=== PATIENT | female | born 1930 | race Caucasian/White ===

== ENCOUNTER 2016-07-30 12:17 | Outpatient (CLI) | payer MEDICARE, BC | END 2016-07-30 12:18 | disposition home or self-care (01) | DX: E11.9 Type 2 diabetes mellitus without complications (principal) ==

== ENCOUNTER 2017-02-28 15:33 | Emergency (ER) | payer MEDICARE, BC ==
[2017-02-28 15:44] VITALS: BP 165/74
--- NOTE | 2017-02-28 16:03 | ED Physician Documentation ---
PD HPI LOWER EXT INJURY - Stated complaint Stated Complaint: LT KNEE INJ - Chief complaint Chief Complaint: Ext Problem - History obtained from History obtained from: Patient - History of Present Illness PD HPI LOW EXT INJURY LOCATION: Left, Upper leg, Knee, Foot Type of injury: Fall, Twist (she twisted left ankle/foot and fell, landing to left knee. Pain on knee and distal femur area. Has had prior femur fracture repaired and was concerned about damage to repair.) Timing - onset: Today Timing - details: Abrupt onset Worsened by: Moving, Palpating, Other (standing) Associated symptoms: No: Weakness, Numbness, Swelling Contributing factors: Prior ortho surgery (femur fracture with repair.) Recently seen: Not recently seen Review of Systems Musculoskeletal: reports: Neck pain, Back pain, Other (left foot and ankle with mild tenderness dorsolaterally. Good ROM and not having point bony tenderness. Left knee with tenderness anteriorly. No bruising. Limited exam of knee due to injury. No noted effusion, no deformity. ROM is okay though hurts.) Neurologic: denies: Focal weakness, Numbness, Confused, Altered mental status, Headache, Head injury PD PAST MEDICAL HISTORY - Past Medical History Cardiovascular: Hypertension, Angina Respiratory: None Neuro: None Endocrine/Autoimmune: Type 2 diabetes GI: None : None HEENT: Other Psych: None Musculoskeletal: Other Derm: Other - Past Surgical History Past Surgical History: Yes Ortho: Spine surgery HEENT: Detached retina repair - Present Medications Home Medications: Ambulatory Orders Medication Instructions Recorded Confirmed Atorvastatin Calcium [Lipitor] 20 mg PO DAILY 07/24/13 05/12/14 Metformin HCl [Fortamet] 1,000 mg PO BID 07/24/13 05/12/14 Sennosides [Senna] 8.6 mg PO DAILY 07/24/13 05/12/14 Metoprolol Succinate [Toprol Xl] 25 mg PO BID 05/07/14 05/12/14 Rivaroxaban [Xarelto] 20 mg PO DAILY 05/07/14 05/12/14 - Allergies Allergies/Adverse Reactions: Allergies Allergy/AdvReac Type Severity Reaction Status Date / Time Sulfa (Sulfonamide Allergy Unknown Unknown Verified 02/28/17 15:44 Antibiotics) - Social History Does the pt smoke?: No Smoking Status: Never smoker Does the pt drink ETOH?: No Does the pt have substance abuse?: No - Immunizations Immunizations are current?: Yes Immunizations: TDAP >10years/unknown - POLST Patient has POLST: Yes PD ED PE NORMAL - Vitals Vital signs reviewed: Yes - General General: Alert and oriented X 3, No acute distress, Well developed/nourished - HEENT HEENT: Atraumatic - Neck Neck: Supple, no meningeal sign, No adenopathy - Cardiac Cardiac: RRR, No murmur - Respiratory Respiratory: Clear bilaterally - Abdomen Abdomen: Soft, Non tender - Back Back: No CVA TTP, No spinal TTP - Derm Derm: Normal color, Warm and dry - Extremities Extremities: Other (left foot and ankle with tenderness but no bony point tenderness anterolateral proximal foot. Good ROM. The knee has some tenderness anteriorly. No gross deformity. Limited ROM due to pain, but tai flex and extend. ) - Neuro Neuro: Alert and oriented X 3, No motor deficit, Normal speech Results - Vitals Vitals: Oxygen O2 Source Room air - Rads (name of study) knee/femur Radiology: Prelim report reviewed (prior surgical hardware and healed fracture. No new fractures seen. Tricompartment arthritis. ) PD MEDICAL DECISION MAKING - ED course Complexity details: reviewed results (no new fractures nor apparent dislodgement of prior hardware. ), considered differential, d/w patient Departure - Departure Disposition: 01 Home, Self Care Clinical Impression: Accidental fall Qualifiers: Encounter type: initial encounter Qualified Code(s): W19.XXXA - Unspecified fall, initial encounter Knee contusion Qualifiers: Encounter type: initial encounter Laterality: left Qualified Code(s): S80.02XA - Contusion of left knee, initial encounter Foot sprain Qualifiers: Encounter type: initial encounter Laterality: left Qualified Code(s): S93.602A - Unspecified sprain of left foot, initial encounter Condition: Stable Record reviewed to determine appropriate education?: Yes Instructions: ED Contusion Lower Ext, ED Hematoma Comments: Claude wrap ice and elevate for the knee swelling. It will hurt well for several days and then the swelling sugar down and improve weightbearing. The bruising color will take a while to clear up. The hematoma there may take 2-3 weeks to fully improve. Recheck if it has not improved a lot over the next 5-6 days. Tylenol or ibuprofen if needed for pains. Walker or whatever is needed for comfort at home. Discharge Date/Time: 02/28/17 17:34
--- NOTE | 2017-02-28 16:50 | XRAY Preliminary Report ---
Exam: XR FEMUR 2V LT IMPRESSION: Left femur intramedullary michael with proximal and distal interlocking screws appears unchan ged. No evidence for acute fracture. [facility] SITE ID: [id number]
--- NOTE | 2017-02-28 16:52 | XRAY Report ---
EXAM: LEFT FEMUR RADIOGRAPHY EXAM DATE: 02/28/2017 04:33 PM. CLINICAL HISTORY: Fell with knee pain. COMPARISON: 03/14/2015. TECHNIQUE: 2 views. FINDINGS: Left femur intramedullary michael with proximal and distal interlocking screws appears unchange d. No evidence for loosening. No evidence for acute fracture. Bones are demineralized. Mild to moderate left hip degenerative joint disease. See the separate knee x-ray report. No dislocat ion. Femoral artery calcification. IMPRESSION: Left femur intramedullary michael with proximal and distal interlocking screws appears unchan ged. No evidence for acute fracture. [facility] Referring Provider Line: [phone] SITE ID: [id number]
--- NOTE | 2017-02-28 16:53 | XRAY Preliminary Report ---
Exam: XR KNEE 3 VIEW LT IMPRESSION: 1. No evidence for acute fracture. 2. Moderate anterior knee soft tissue swelling. 3. Tricompartment knee degenerative joint disease. Small knee joint effusion. [facility] SITE ID: [id number]
--- NOTE | 2017-02-28 16:55 | XRAY Report ---
EXAM: LEFT KNEE RADIOGRAPHY EXAM DATE: 02/28/2017 04:33 PM. CLINICAL HISTORY: Fall-bruising. COMPARISON: 03/14/2015 left knee. TECHNIQUE: 3 views. FINDINGS: Moderate anterior knee soft tissue swelling. Distal femur intramedullary michael and screws. No evidence for loosening. No dislocation. Femorotibial chondrocalcinosis. Moderate medial compartment femoral tibial degenerati ve joint disease with joint space narrowing and sclerosis. Mild lateral compartment osteophytes. Mild patellofemoral degenerative joint disease. Small knee joint effusion. Bones are demineralized. No evidence for acute fracture. IMPRESSION: 1. No evidence for acute fracture. 2. Moderate anterior knee soft tissue swelling. 3. Tricompartment knee degenerative joint disease. Small knee joint effusion. [facility] Referring Provider Line: [phone] SITE ID: [id number]
== END 2017-02-28 17:34 | disposition home or self-care (01) ==
LOC: ED 15:33
DX: S80.02XA Contusion of left knee, initial encounter (principal); S93.602A Unspecified sprain of left foot, initial encounter; W01.0XXA Fall on same level from slipping, tripping and stumbling without subsequent striking against object, initial encounter; I10 Essential (primary) hypertension; I20.9 Angina pectoris, unspecified; Z79.01 Long term (current) use of anticoagulants; E11.9 Type 2 diabetes mellitus without complications
CPT/HCPCS: 99283

== ENCOUNTER 2017-09-16 08:00 | Outpatient (CLI) | payer MEDICARE, BC ==
[2017-09-16 13:54] LABS: HB2 TOTAL 14.1 g/dL; HEMOGLOBIN A1C 0.78 g/dL; HEMOGLOBIN A1C % 7.2 % (4.6-6.2)
[2017-09-16 14:00] LABS: ALBUMIN 3.9 g/dL (3.2-5.5); ALBUMIN/GLOBULIN RATIO 1.3 (1.0-2.2); ALKALINE PHOSPHATASE 40 IU/L (42-121); ALT ALANINE AMINOTRANSFERASE 16 IU/L (10-60); AST ASPARTATE AMINOTRANSFERASE 26 IU/L (10-42); BILIRUBIN,TOTAL 0.4 mg/dL (0.2-1.0); BUN - BLOOD UREA NITROGEN 7 mg/dL (6-20); CALCIUM 9.2 mg/dL (8.5-10.3); CARBON DIOXIDE - CO2 24 mmol/L (21-32); CHLORIDE 104 mmol/L (101-111); CHOL/HDL RATIO 3.2 (<4.4); CHOLESTEROL 90 mg/dL; CREATININE 0.6 mg/dL (0.4-1.0); GFR - MDRD 95 (>89); GLUCOSE 134 mg/dL (70-100); HDL CHOLESTEROL 28 mg/dL; LDL CHOLESTEROL,CALCULATED 45 mg/dL; LDL/HDL RATIO 1.6 (<4.4); SODIUM 136 mmol/L (135-145); TOTAL PROTEIN 6.9 g/dL (6.7-8.2); VLDL CHOLESTEROL 17 mg/dL
[2017-09-16 14:13] LABS: BASOPHILS # (AUTO) 0.1 10^3/uL (0.0-0.1); BASOPHILS % (AUTO) 1.3 %; EOSINOPHILS # (AUTO) 0.2 10^3/uL (0.0-0.7); EOSINOPHILS % (AUTO) 4.6 %; HGB - HEMOGLOBIN 12.9 g/dL (12.0-16.0); LYMPHOCYTES # (AUTO) 1.6 10^3/uL (1.5-3.5); LYMPHOCYTES % (AUTO) 29.1 %; MEAN CORPUSCULAR HEMOGLOBIN 29.2 pg (27.0-31.0); MEAN CORPUSCULAR HGB CONC 32.9 g/dL (32.0-36.0); MEAN CORPUSCULAR VOLUME 88.9 fL (81.0-99.0); MEAN PLATELET VOLUME 9.7 fL (7.9-10.8); MONOCYTES # (AUTO) 0.5 10^3/uL (0.0-1.0); MONOCYTES % (AUTO) 9.4 %; NEUTROPHILS % (AUTO) 55.6 %; PLT - PLATELET COUNT 246 10^3/uL (130-450); RED CELL DISTRIBUTION WIDTH 15.6 % (12.0-15.0); WHITE BLOOD COUNT 5.3 x10^3/uL (4.8-10.8)
[2017-09-16 15:10] LABS: PLATELET ESTIMATE, MANUAL NORMAL (130-450,000) (NORMAL); PLATELET MORPHOLOGY 2+ LARGE PLATELETS (NORMAL); RBC MORPHOLOGY (MULTIPLE) NORMAL APPEARANCE (NORMAL)
== END 2017-09-16 08:01 | disposition home or self-care (01) ==
LOC: LAB.WCP 08:00
PROVIDERS: ATTEND Family Medicine
DX: I48.91 Unspecified atrial fibrillation (principal); E11.9 Type 2 diabetes mellitus without complications; E78.5 Hyperlipidemia, unspecified
CPT/HCPCS: 36415; 80053; 80061; 83036; 83721; 84443; 85025

== ENCOUNTER 2018-01-06 10:00 | Outpatient (CLI) | payer MEDICARE, BC | END 2018-01-06 10:01 | LOC: LAB.WCP 10:00 | PROVIDERS: ATTEND Physician Assistant Medical | DX: F02.80 Dementia in other diseases classified elsewhere, unspecified severity, without behavioral disturbance, psychotic disturbance, mood disturbance, and anxiety (principal); G30.9 Alzheimer's disease, unspecified | CPT/HCPCS: 36415; 82607 ==

== ENCOUNTER 2018-03-16 15:05 | Outpatient (CLI) | payer MEDICARE, BC ==
--- NOTE | 2018-03-17 13:11 | MRI Report ---
Reason: TRIGGER FINGER OF RIGHT MIDDLE FINGER Procedure Date: 03/16/2018 Accession Number: [id number] / [id number] Procedure: MRI - Hand RT W/O CPT Code: FULL RESULT: EXAM: RIGHT HAND MRI WITHOUT CONTRAST EXAM DATE: 03/16/2018 04:07 PM. CLINICAL HISTORY: Trigger finger of right middle finger. COMPARISON: FINGER(S) RT 02/17/2018 11:43 AM. TECHNIQUE: Multiplanar, multisequence T1-weighted and fluid-sensitive sequences of the hand without contrast. Other: None. FINDINGS: Bones and Articular Surfaces: There is some joint space narrowing as well as small marginal osteophyte formation throughout the visualized interphalangeal joints, most pronounced at the third digit. No appreciable erosive change. No significant joint effusion. Cartilage loss at the base of the third proximal phalanx. Slight volar subluxation of the proximal phalanx at the second MCP joint. Musculotendinous Structures: Moderate focal area of fluid surrounding the flexor digitorum brevis tendons at the level of the distal aspect of the third metacarpal. Visualized flexor and extensor tendons otherwise appear intact. No significant muscle atrophy or fatty replacement. IMPRESSION: 1. Mild osteoarthritis throughout the interphalangeal joints as well as the third MCP joint. 2. Third flexor digitorum tenosynovitis. [facility] MUSCULOSKELETAL RADIOLOGY SECTION
== END 2018-03-16 15:06 | disposition home or self-care (01) ==
LOC: DI 15:05
PROVIDERS: ATTEND Orthopaedic Surgery Sports Medicine
DX: M65.331 Trigger finger, right middle finger (principal); M19.041 Primary osteoarthritis, right hand; M65.841 Other synovitis and tenosynovitis, right hand

== ENCOUNTER 2018-03-25 09:10 | Outpatient (CLI) | payer MEDICARE, BC ==
[2018-03-25 13:47] LABS: HB2 TOTAL 13.7 g/dL; HEMOGLOBIN A1C 0.76 g/dL; HEMOGLOBIN A1C % 7.2 % (4.6-6.2)
[2018-03-25 13:49] LABS: ALBUMIN 4.2 g/dL (3.2-5.5); ALBUMIN/GLOBULIN RATIO 1.4 (1.0-2.2); ALKALINE PHOSPHATASE 46 IU/L (42-121); ALT ALANINE AMINOTRANSFERASE 19 IU/L (10-60); AST ASPARTATE AMINOTRANSFERASE 27 IU/L (10-42); BILIRUBIN,TOTAL 0.8 mg/dL (0.2-1.0); BUN - BLOOD UREA NITROGEN 12 mg/dL (6-20); CALCIUM 9.4 mg/dL (8.5-10.3); CARBON DIOXIDE - CO2 25 mmol/L (21-32); CHLORIDE 100 mmol/L (101-111); CHOL/HDL RATIO 2.7 (<4.4); CHOLESTEROL 85 mg/dL; CREATININE 0.6 mg/dL (0.4-1.0); GFR - MDRD 95 (>89); GLUCOSE 143 mg/dL (70-100); HDL CHOLESTEROL 32 mg/dL; LDL CHOLESTEROL,CALCULATED 34 mg/dL; LDL/HDL RATIO 1.1 (<4.4); SODIUM 135 mmol/L (135-145); TOTAL PROTEIN 7.1 g/dL (6.7-8.2); VLDL CHOLESTEROL 19 mg/dL
== END 2018-03-25 09:11 | disposition home or self-care (01) ==
LOC: LAB.WCP 09:10
PROVIDERS: ATTEND Physician Assistant Medical
DX: E11.9 Type 2 diabetes mellitus without complications (principal); E53.8 Deficiency of other specified B group vitamins
CPT/HCPCS: 36415; 80053; 80061; 82607; 83036; 83721

== ENCOUNTER 2018-05-29 10:18 | Outpatient (CLI) | payer MEDICARE, BC ==
[2018-05-29 10:45] LABS: BASOPHILS # (AUTO) 0.1 10^3/uL (0.0-0.1); BASOPHILS % (AUTO) 1.1 %; EOSINOPHILS # (AUTO) 0.2 10^3/uL (0.0-0.7); EOSINOPHILS % (AUTO) 3.8 %; HGB - HEMOGLOBIN 13.7 g/dL (12.0-16.0); LYMPHOCYTES # (AUTO) 1.7 10^3/uL (1.5-3.5); LYMPHOCYTES % (AUTO) 27.2 %; MEAN CORPUSCULAR HEMOGLOBIN 30.1 pg (27.0-31.0); MEAN CORPUSCULAR HGB CONC 33.4 g/dL (32.0-36.0); MEAN CORPUSCULAR VOLUME 89.9 fL (81.0-99.0); MEAN PLATELET VOLUME 9.2 fL (7.9-10.8); MONOCYTES # (AUTO) 0.6 10^3/uL (0.0-1.0); MONOCYTES % (AUTO) 8.8 %; NEUTROPHILS # (AUTO) 3.8 10^3/uL (1.5-6.6); NEUTROPHILS % (AUTO) 59.1 %; PLT - PLATELET COUNT 266 10^3/uL (130-450); RED BLOOD COUNT 4.55 10^6/uL (4.20-5.40); RED CELL DISTRIBUTION WIDTH 15.2 % (12.0-15.0); WHITE BLOOD COUNT 6.4 x10^3/uL (4.8-10.8)
[2018-05-29 10:53] LABS: CALCIUM 9.4 mg/dL (8.5-10.3); CREATININE 0.6 mg/dL (0.4-1.0)
[2018-05-29 11:19] LABS: PLATELET MORPHOLOGY RARE GIANT PLATELETS (NORMAL)
== END 2018-05-29 10:19 | disposition home or self-care (01) ==
LOC: LAB 10:18
PROVIDERS: ATTEND Orthopaedic Surgery Sports Medicine
DX: M65.331 Trigger finger, right middle finger (principal); E53.8 Deficiency of other specified B group vitamins; I48.0 Paroxysmal atrial fibrillation
CPT/HCPCS: 36415; 80048; 85025; 93005

== ENCOUNTER 2018-06-03 07:32 | Day surgery (SDC) | payer MEDICARE, BC ==
[2018-06-03] MEDS ORDERED: LACTATED RINGERS 1,000 ML IV ONE ×2 (07:41)
[2018-06-03] MEDS ORDERED: ceFAZolin 2 GM/50 ML 2 GM/50 ML BAG IV ONE ×2 (08:06→09:38)
--- NOTE | 2018-06-03 08:10 | ANESTHESIA ---
Pre-Anesthesia VS, & Labs - Diagnosis right third trigger finger - Procedure rigt third trigger finger release Height 5 ft 2 in Body Mass Index 39.3 Home Medications and Allergies Home Medications: Ambulatory Orders Aspirin [Adult Aspirin] 81 mg PO DAILY 05/27/18 Cyanocobalamin (Vitamin B-12) [Vitamin B-12] 1,000 mcg PO BID 05/27/18 Atorvastatin Calcium [Lipitor] 20 mg PO DAILY 07/24/13 Metformin HCl [Fortamet] 1,000 mg PO BID 07/24/13 Metoprolol Succinate [Toprol Xl] 25 mg PO DAILY 05/07/14 Rivaroxaban [Xarelto] 20 mg PO DAILY 05/07/14 Aspirin [Adult Aspirin] 81 mg PO DAILY 05/27/18 Cyanocobalamin (Vitamin B-12) [Vitamin B-12] 1,000 mcg PO BID 05/27/18 Allergies/Adverse Reactions: Allergies Allergy/AdvReac Type Severity Reaction Status Date / Time Sulfa (Sulfonamide Allergy Unknown Unknown Verified 06/03/18 07:57 Antibiotics) Anes History & Medical History - Medical History Cardiovascular: reports: High cholesterol, Angina Pulmonary: reports: Sleep apnea Gastrointestinal: reports: Colon polyps Urinary: reports: None Musculoskeletal: reports: Osteoarthritis, Other Endocrine/Autoimmune: reports: Type 2 diabetes Blood Disorders: reports: None Skin: reports: Other Smoking Status: Never smoker - Surgical History General: Colonoscopy Eyes Ears Nose Throat (EENT): Detached retina repair Orthopedic: Spine surgery
[2018-06-03] MEDS ORDERED: BUPIVACAINE 0.25% PF 30 ML VIAL ONE (08:14)
--- NOTE | 2018-06-03 08:19 | ANESTHESIA ---
Pre-Anesthesia VS, & Labs - Diagnosis right third finger trigger - Procedure right third finger trigger release Vital Signs: Temp Pulse Resp BP Pulse Ox 36.6 C 68 17 191/77 H 95 06/03/18 07:42 06/03/18 07:42 06/03/18 07:42 06/03/18 07:42 06/03/18 07:42 Height 5 ft 4 in Body Mass Index 39.3 - NPO >8 hours - Is Patient ?: Not Applicable - Lab Results Current Lab Results: Laboratory Tests 06/03/18 07:57: POC Whole Bld Glucose 149 H Home Medications and Allergies Home Medications: Ambulatory Orders Aspirin [Adult Aspirin] 81 mg PO DAILY 05/27/18 Cyanocobalamin (Vitamin B-12) [Vitamin B-12] 1,000 mcg PO BID 05/27/18 Atorvastatin Calcium [Lipitor] 20 mg PO DAILY 07/24/13 Metformin HCl [Fortamet] 1,000 mg PO BID 07/24/13 Metoprolol Succinate [Toprol Xl] 25 mg PO DAILY 05/07/14 Rivaroxaban [Xarelto] 20 mg PO DAILY 05/07/14 Aspirin [Adult Aspirin] 81 mg PO DAILY 05/27/18 Cyanocobalamin (Vitamin B-12) [Vitamin B-12] 1,000 mcg PO BID 05/27/18 Allergies/Adverse Reactions: Allergies Allergy/AdvReac Type Severity Reaction Status Date / Time Sulfa (Sulfonamide Allergy Unknown Unknown Verified 06/03/18 07:57 Antibiotics) Anes History & Medical History - Anesthetic History Anesthesia Complications: reports: No previous complications - Medical History Cardiovascular: reports: High cholesterol, Angina Pulmonary: reports: Sleep apnea Gastrointestinal: reports: Colon polyps Urinary: reports: None Neuro: reports: TIA (memory issues) Musculoskeletal: reports: Osteoarthritis, Other Endocrine/Autoimmune: reports: Type 2 diabetes Blood Disorders: reports: None Skin: reports: Other Smoking Status: Never smoker - Surgical History General: Colonoscopy Eyes Ears Nose Throat (EENT): Detached retina repair Orthopedic: Spine surgery Exam General: Alert Neck Mobility: Normal Mallampati classification: II Respiratory: Lungs clear Cardiovascular: Regular rate, Normal S1, Normal S2 Mental/Cognitive Status: Alert/Oriented X3 Plan Anesthesia Type: General Consent for Procedure(s) Verified and Reviewed: Yes Code Status: Attempt Resuscitation ASA classification: 3-Severe systemic disease Is this case an emergency?: No
[2018-06-03] MEDS ORDERED: BUPIVACAINE 0.25% PF 30 ML VIAL SUBQ ONE ×2 (09:05)
[2018-06-03] MEDS ORDERED: LIDOCAINE-MPF 2% 5 ML VIAL IM ONE (09:38)
[2018-06-03] MEDS ORDERED: fentaNYL 100 MCG/2 ML VIAL IVP ONE (09:38)
[2018-06-03] MEDS ORDERED: ePHEDrine 50 MG/ML VIAL IVP ONE (09:38)
[2018-06-03] MEDS ORDERED: PROPOFOL 200 MG/20 ML VIAL IVP ONE (09:38)
[2018-06-03] MEDS ORDERED: ONDANSETRON 4 MG/2 ML VIAL IVP PRN (10:20)
[2018-06-03] MEDS ORDERED: HYDROcod/ACETAM 5/325 MG TABLET PO PRN (10:20)
--- NOTE | 2018-06-03 10:37 | IMMEDIATE POSTOPERATIVE NOTE ---
Immediate Postoperative Note - Procedure Note Procedure Date: 06/03/18 Pre-Op Diagnosis: RIGHT 3RD TRIGGER FINGER Procedure: RIGHT 3RD TRIGGER RELEASE Post-Op Diagnosis: SAME Primary Surgeon: Jh COY MD Poured Pipe Maker: SENTHIL Anesthesia Type: General LMA, Local Findings: ABOVE Complications: No complications Estimated Blood Loss (in cc): 5 Specimens and Cultures: NA Plan of Care: Patient tolerated procedure well. Instrument and sponge counts correct. Pt transferred to in stable condition. Follow standard post-op trigger finger protocol discussed with daughter post-op
[2018-06-03 11:09] VITALS: BP 139/49
--- NOTE | 2018-06-03 18:35 | OPERATIVE REPORT ---
DATE OF SERVICE: 06/03/2018 Physician: John Goodman MD SURGEON: John Goodman MD CHAMFERING MACHINE OPERATOR: None. ANESTHESIOLOGIST: Felice Pastor MD ANESTHESIA: General anesthesia as well as 10 mL of 0.25% plain Marcaine. ESTIMATED BLOOD LOSS: Less than 5 mL. FLUIDS: 700 mL lactated Ringer's. COMPRESSION DEVICE: Bilateral calf SCD boots. PREOPERATIVE ANTIBIOTICS: Weight-based IV Ancef. TOURNIQUET TIME: 23 minutes at 250 mmHg. PREOPERATIVE DIAGNOSIS: Right third digit stenosing tenosynovitis/trigger finger. POSTOPERATIVE DIAGNOSIS: Right third digit stenosing tenosynovitis/trigger finger. PROCEDURE: Right third digit trigger finger release. INTRAOPERATIVE COMPLICATIONS: None noted. INTRAOPERATIVE FINDINGS: Locked trigger finger is released with smooth range of motion post A1 pulle y release. There is a prominence in the flexor tendon consistent with trigger finger. HISTORY OF PRESENT ILLNESS AND INDICATIONS: The patient is an 87-year-old female who failed nonopera tive treatment for right 3rd trigger finger. This was a locked trigger finger. She was indicated fo r operative treatment. Please see operative discussion in the clinic where risks, benefits, alternat omer of operative and nonoperative treatment were reviewed. The patient and the patient's daughter v erbalized understanding of the above and verbalized her wish to proceed with operative treatment. In formed consent was given. PROCEDURE: On 06/03/2018 the patient was identified in the preoperative care unit. She identifies t he right third digit as the operative site. This area is signed. The patient received preoperative weight-based IV antibioticsV. She was brought to the operating room, where general anesthesia was ad ministered. Head, neck, and extremities placed in anatomically comfortable and safe positions to leighann id peripheral nerve stretch or compression. The patient's right upper extremity had a well-padded to urniquet placed high on the right arm, taking care to avoid any encumbrance of the axilla. The patie nt's right upper extremity was then scrubbed, the fingernail bengali was removed, and then the right h and and wrist and forearm were prepped and draped in the usual sterile fashion. At this time, surgical pause identifies the right third digit as the operative site. At this point, the distal palmar crease identified at the area just distal to the MCP joint. A longitudinal incisio n was made over the A1 jennifer after being marked out. This was approximated going from 2 cm proximal to the proximal digital crease to 1 cm from the proximal digital crease of the third ray. After erick rniquet is inflated after Esmarch bandage was used to exsanguinate the limb after timeout and surgica l pause, the aforementioned incision is made through skin only. Spreading dissection is carried out to the A1 jennifer. The neurovascular bundle is protected on the radial and ulnar sides. The proximal and distal aspects of the A1 jennifer are identified. The locked digit is appreciated and once fully identified and defined, the A1 jennifer is initially incised sharply and then with tenotomy scissors pr oximally and distally to the proximal and distal ends. Care was taken to avoid injury to adjacent ne urovascular structures, which were protected as well as to avoid any more distal dissection that may affect the adjacent A2 jennifer. After this appropriately released the finger, and though the nodule can still be palpated, the finger moves freely with no catching or triggering whatsoever. There is no bowstringing. At this point, the wound is copiously irrigated and then closed using interrupted 4-0 nylon suture wi th mattress-style sutures to tyra the skin edges. Skin is washed and dried, local anesthetic was in fused in the area around the incision, and then the incision is covered with Xeroform dressing, 4 x 4 , and then ultimately with Ghazala and Claude wrap after soft roll. The patient tolerated the procedure well. Instrument and sponge counts were correct. The patient tr ansferred to recovery room in stable condition. She will follow standard postoperative right 3rd tri gger finger protocol. The patient's daughter was contacted in the waiting room. The case was discussed. The patient will be encouraged to gently flex and extend the digit with active assistance. She will flex and extend a djacent digits to avoid exertion. She will keep the dressing clean, dry, and intact. We will see he r back in 10-14 days to take the stitches out, though sooner should problems, questions, or worsening of the patient's condition should arise. She was also given a prescription for Tylenol No. 3 per e patient's daughter's request, though they will use this as a backup to Tylenol if that does not wor k. They will notify us prior to the followup visit for problems or questions. Of note, it was noted that the patient did have a small skin tear approximately 1 cm on the mid forea rm adjacent to a previously noted ecchymotic area. This is noted immediately after the dressings wer e taken down and Dermabond was used to close this skin tear. The patient's daughter was advised of t his and advised on appropriate care. TD: 06/03/2018 11:15
== END 2018-06-03 07:33 | disposition home or self-care (01) ==
LOC: SDS 07:32
PROVIDERS: ATTEND Orthopaedic Surgery Sports Medicine
PROC: 0LN70ZZ Release Right Hand Tendon, Open Approach (ICD-10-PCS; principal; 2018-06-03 08:30)
DX: M65.331 Trigger finger, right middle finger (principal); G47.30 Sleep apnea, unspecified; E11.9 Type 2 diabetes mellitus without complications; I48.91 Unspecified atrial fibrillation; Z86.73 Personal history of transient ischemic attack (TIA), and cerebral infarction without residual deficits
CPT/HCPCS: 26055; J0690; J7120

== ENCOUNTER 2018-09-24 14:28 | Outpatient (CLI) | payer MEDICARE, BC ==
[2018-09-24 19:08] LABS: BASOPHILS % (AUTO) 0.7 %; EOSINOPHILS # (AUTO) 0.1 10^3/uL (0.0-0.7); EOSINOPHILS % (AUTO) 1.9 %; LYMPHOCYTES # (AUTO) 1.7 10^3/uL (1.5-3.5); LYMPHOCYTES % (AUTO) 25.3 %; MEAN CORPUSCULAR HEMOGLOBIN 29.2 pg (27.0-31.0); MEAN CORPUSCULAR HGB CONC 32.2 g/dL (32.0-36.0); MEAN CORPUSCULAR VOLUME 90.7 fL (81.0-99.0); MONOCYTES # (AUTO) 0.7 10^3/uL (0.0-1.0); NEUTROPHILS # (AUTO) 4.2 10^3/uL (1.5-6.6); NEUTROPHILS % (AUTO) 62.1 %; PLT - PLATELET COUNT 260 10^3/uL (130-450); RED BLOOD COUNT 4.44 10^6/uL (4.20-5.40); RED CELL DISTRIBUTION WIDTH 15.1 % (12.0-15.0); WHITE BLOOD COUNT 6.7 x10^3/uL (4.8-10.8)
[2018-09-24 19:10] LABS: ALBUMIN 3.7 g/dL (3.2-5.5); ALBUMIN/GLOBULIN RATIO 1.1 (1.0-2.2); ALKALINE PHOSPHATASE 46 IU/L (42-121); ALT ALANINE AMINOTRANSFERASE 19 IU/L (10-60); AST ASPARTATE AMINOTRANSFERASE 31 IU/L (10-42); BILIRUBIN,TOTAL 0.7 mg/dL (0.2-1.0); BUN - BLOOD UREA NITROGEN 12 mg/dL (6-20); CALCIUM 9.4 mg/dL (8.5-10.3); CARBON DIOXIDE - CO2 23 mmol/L (21-32); CHLORIDE 103 mmol/L (101-111); CHOL/HDL RATIO 3.4 (<4.4); CHOLESTEROL 100 mg/dL; CREATININE 0.7 mg/dL (0.4-1.0); GFR - MDRD 80 (>89); GLUCOSE 161 mg/dL (70-100); HB2 TOTAL 13.5 g/dL; HDL CHOLESTEROL 29 mg/dL; HEMOGLOBIN A1C 0.71 g/dL; LDL CHOLESTEROL,CALCULATED 52 mg/dL; LDL/HDL RATIO 1.8 (<4.4); SODIUM 138 mmol/L (135-145); VLDL CHOLESTEROL 19 mg/dL
== END 2018-09-24 14:29 | disposition home or self-care (01) ==
LOC: LAB.WCP 14:28
PROVIDERS: ATTEND Family Medicine
DX: E11.9 Type 2 diabetes mellitus without complications (principal); E53.8 Deficiency of other specified B group vitamins
CPT/HCPCS: 36415; 80053; 80061; 82607; 83036; 83721; 85025

== ENCOUNTER 2019-04-21 08:00 | Outpatient (CLI) | payer MEDICARE, BC ==
[2019-04-21 13:19] LABS: CALCIUM 9.4 mg/dL (8.5-10.3); CREATININE 0.7 mg/dL (0.4-1.0)
[2019-04-21 14:20] LABS: HB2 TOTAL 13.1 g/dL; HEMOGLOBIN A1C 0.66 g/dL; HEMOGLOBIN A1C % 6.8 % (4.6-6.2)
== END 2019-04-21 23:59 | disposition home or self-care (01) ==
LOC: LAB.WCP 08:00
PROVIDERS: ATTEND Physician Assistant Medical
DX: E11.9 Type 2 diabetes mellitus without complications (principal)
CPT/HCPCS: 36415; 80048; 83036

== ENCOUNTER 2019-04-23 09:03 | Outpatient (CLI) | payer MEDICARE, BC | END 2019-04-23 09:04 | disposition critical access hospital (66) | LOC: EMS 09:03 | PROVIDERS: ATTEND Surgery | DX: R11.2 Nausea with vomiting, unspecified (principal) | CPT/HCPCS: A0425; A0427 ==

== ENCOUNTER 2019-04-23 09:18 | Inpatient (IN) | payer MEDICARE, BC ==
[2019-04-23 09:42] LABS: BASOPHILS % (AUTO) 0.3 %; EOSINOPHILS # (AUTO) 0.1 10^3/uL (0.0-0.7); EOSINOPHILS % (AUTO) 0.8 %; HGB - HEMOGLOBIN 14.4 g/dL (12.0-16.0); LYMPHOCYTES # (AUTO) 0.5 10^3/uL (1.5-3.5); LYMPHOCYTES % (AUTO) 7.9 %; MEAN CORPUSCULAR HEMOGLOBIN 29.5 pg (27.0-31.0); MEAN CORPUSCULAR HGB CONC 32.4 g/dL (32.0-36.0); MEAN CORPUSCULAR VOLUME 91.2 fL (81.0-99.0); MEAN PLATELET VOLUME 10.8 fL (7.9-10.8); MONOCYTES % (AUTO) 0.6 %; NEUTROPHILS # (AUTO) 5.9 10^3/uL (1.5-6.6); NEUTROPHILS % (AUTO) 90.2 %; PLT - PLATELET COUNT 262 10^3/uL (130-450); RED BLOOD COUNT 4.88 10^6/uL (4.20-5.40); WHITE BLOOD COUNT 6.6 x10^3/uL (4.8-10.8)
[2019-04-23 09:56] LABS: ALBUMIN 4.1 g/dL (3.2-5.5); ALBUMIN/GLOBULIN RATIO 1.1 (1.0-2.2); BILIRUBIN,TOTAL 1.2 mg/dL (0.2-1.0); CALCIUM 9.4 mg/dL (8.5-10.3); CREATININE 0.7 mg/dL (0.4-1.0); TOTAL PROTEIN 7.8 g/dL (6.7-8.2)
[2019-04-23 09:58] LABS: INR 2.5 (0.8-1.2); PT - PROTHROMBIN TIME 26.9 secs (9.9-12.6)
[2019-04-23 10:05] LABS: PARTIAL THROMBOPLASTIN TIME 33.1 secs (24.9-33.3)
--- NOTE | 2019-04-23 10:15 | XRAY Report ---
Reason: cough Procedure Date: 04/23/2019 Accession Number: [id number] / [id number] Procedure: XR - Chest 1 View X-Ray CPT Code: 22408 Final Report FULL RESULT: EXAM: CHEST RADIOGRAPHY EXAM DATE: 04/23/2019 09:45 AM. CLINICAL HISTORY: Cough. COMPARISON: 03/29/2014 8:29 PM. TECHNIQUE: 1 view. FINDINGS: Lungs/Pleura: Central bronchial wall thickening noted. Mild increase in left greater than right basilar opacities. No focal upper lung opacity seen. No pleural effusion or pneumothorax. Mediastinum: Stable heart size and mediastinum. Atherosclerotic plaque of the aortic arch noted. Other: None. IMPRESSION: 1. Central bronchial wall thickening could reflect underlying reactive airways and bronchitis. 2. Left ear than right basilar opacities could reflect superimposed pneumonia. [facility]
[2019-04-23 10:26] LABS: BILIRUBIN,URINE NEGATIVE (NEGATIVE); GLUCOSE, URINE (UA) NEGATIVE (NEGATIVE); KETONES,URINE (UA) 15 mg/dL (NEGATIVE); LEUKOCYTE ESTERASE, URINE NEGATIVE (NEGATIVE); NITRITE,URINE NEGATIVE (NEGATIVE); OCCULT BLOOD,URINE TRACE-INTA (NEGATIVE); PROTEIN,URINE NEGATIVE (NEGATIVE); UROBILINOGEN,URINE 0.2 (NORMAL) E.U./dL (NORMAL)
[2019-04-23 10:29] LABS: CLARITY,URINE CLEAR (CLEAR)
[2019-04-23] MEDS ORDERED: SODIUM CHLORIDE 0.9% IV STA (10:33)
[2019-04-23] MEDS ORDERED: AZITHROMYCIN INJ 500 MG in SODIUM CHLORIDE 0.9% 250 ML IV STA (10:35)
[2019-04-23] MEDS ORDERED: diltiaZEM INJ 5 MG/ML VIAL IVP STA (10:35)
[2019-04-23] MEDS ORDERED: cefTRIAXone 1 GM VIAL IVP STA (10:35)
--- NOTE | 2019-04-23 10:39 | ED Physician Documentation ---
History of Present Illness - Stated complaint Stated Complaint: N/V, CHILLS - Chief complaint Chief Complaint: Abd Pain - History obtained from History obtained from: Patient, Family - History of Present Illness Timing: How many days ago (2-3) Pain level max: 3 Pain level now: 1 - Additonal information Additional information: 88-year-old female presents to the emergency department with rhinorrhea, congestion and coughing for the past 2 days. This morning she was shaking and felt cold. States she could not get warm. She is also sleeping more than usual per family. She is being treated for a yeast infection underneath her breasts. They do not think she has had any fevers at home. Nothing makes it better or worse. Review of Systems Ten Systems: 10 systems reviewed and negative Constitutional: reports: Chills. denies: Fever Ears: denies: Ear pain Nose: reports: Rhinorrhea / runny nose, Congestion Throat: denies: Sore throat Cardiac: denies: Chest pain / pressure Respiratory: reports: Cough GI: reports: Vomiting (X1). denies: Abdominal Pain, Hematemesis, Bloody / black stool Skin: denies: Rash Musculoskeletal: denies: Neck pain, Back pain Neurologic: reports: Generalized weakness. denies: Focal weakness, Numbness, Headache PD PAST MEDICAL HISTORY - Past Medical History Past Medical History: Yes Cardiovascular: High cholesterol, Angina Respiratory: Sleep apnea Neuro: TIA (memory issues) Endocrine/Autoimmune: Type 2 diabetes GI: Colon polyps : None HEENT: Chronic hearing loss, Other Psych: None Musculoskeletal: Osteoarthritis, Other Derm: Other - Past Surgical History Past Surgical History: Yes General: Colonoscopy Ortho: Spine surgery HEENT: Detached retina repair - Present Medications Home Medications: Ambulatory Orders Medication Instructions Recorded Confirmed Atorvastatin Calcium [Lipitor] 20 mg PO DAILY 07/24/13 06/03/18 Metformin HCl [Fortamet] 1,000 mg PO BID 07/24/13 06/03/18 Metoprolol Succinate [Toprol Xl] 25 mg PO DAILY 05/07/14 06/03/18 Rivaroxaban [Xarelto] 20 mg PO DAILY 05/07/14 06/03/18 Aspirin [Adult Aspirin] 81 mg PO DAILY 05/27/18 06/03/18 Cyanocobalamin (Vitamin B-12) 1,000 mcg PO BID 05/27/18 06/03/18 [Vitamin B-12] - Allergies Allergies/Adverse Reactions: Allergies Allergy/AdvReac Type Severity Reaction Status Date / Time Sulfa (Sulfonamide Allergy Unknown Unknown Verified 04/23/19 09:21 Antibiotics) - Social History Does the pt smoke?: No Smoking Status: Never smoker Does the pt drink ETOH?: No Does the pt have substance abuse?: No - Immunizations Immunizations are current?: Yes Immunizations: TDAP >10years/unknown - POLST Patient has POLST: Yes PD ED PE NORMAL - Vitals Vital signs reviewed: Yes - General General: No acute distress, Well developed/nourished, Other (Drowsy, but arousable to voice) - HEENT HEENT: PERRL, Moist mucous membranes, Pharynx benign - Neck Neck: Supple, no meningeal sign - Cardiac Cardiac: RRR - Respiratory Respiratory: No respiratory distress, Clear bilaterally - Abdomen Abdomen: Soft, Non tender, Non distended - Derm Derm: Warm and dry, Other (Erythematous, warm exanthem under the breasts bilaterally.) - Extremities Extremities: No edema, No calf tenderness / cord - Neuro Neuro: Other (easily arousable) - Psych Psych: Normal mood, Normal affect Results - Vitals Vitals: Vital Signs - 24 hr 04/23/19 04/23/19 09:21 10:07 Temperature 37.2 C Heart Rate 128 H 132 H Respiratory 18 16 Rate Blood Pressure 159/83 H 159/92 H O2 Saturation 89 L 100 Oxygen O2 Source Nasal cannula - EKG (time done) 0928 Rate: Rate (enter#) (134) Rhythm: Atrial fibrillation ( w/ RVR) Matthews: Normal Intervals: Normal SC QRS: Normal Ischemia: Non specific changes - Labs Labs: Laboratory Tests 04/23/19 04/23/19 04/23/19 09:30 09:30 09:30 WBC 6.6 RBC 4.88 Hgb 14.4 Hct 44.5 MCV 91.2 MCH 29.5 MCHC 32.4 RDW 15.0 Plt Count 262 MPV 10.8 Neut # (Auto) 5.9 Lymph # (Auto) 0.5 L [place] # (Auto) 0.0 Eos # (Auto) 0.1 Baso # (Auto) 0.0 Absolute Nucleated RBC 0.00 Nucleated RBC % 0.0 PT 26.9 H INR 2.5 H APTT 33.1 Sodium 136 Potassium 3.5 Chloride 97 L Carbon Dioxide 25 Anion Gap 14.0 H BUN 9 Creatinine 0.7 Estimated GFR (MDRD) 79 L Glucose 181 H Glycated Hemoglobin Estim Average Glucose Lactic Acid Calcium 9.4 Total Bilirubin 1.2 H AST 44 H ALT 25 Alkaline Phosphatase 59 Troponin I High Sens Total Protein 7.8 Albumin 4.1 Globulin 3.7 Albumin/Globulin Ratio 1.1 Lipase 46 Urine Color Urine Clarity Urine pH Ur Specific [place] Urine Protein Urine Glucose (UA) Urine Ketones Urine Occult Blood Urine Nitrite Urine Bilirubin Urine Urobilinogen Ur Leukocyte Esterase Ur Microscopic Review Urine Culture Comments 04/23/19 04/23/19 04/23/19 09:40 09:40 09:42 WBC RBC Hgb Hct MCV MCH MCHC RDW Plt Count MPV Neut # (Auto) Lymph # (Auto) [place] # (Auto) Eos # (Auto) Baso # (Auto) Absolute Nucleated RBC Nucleated RBC % PT INR APTT Sodium Potassium Chloride Carbon Dioxide Anion Gap BUN Creatinine Estimated GFR (MDRD) Glucose Glycated Hemoglobin 7.0 H Estim Average Glucose 154 H Lactic Acid 3.2 H* Calcium Total Bilirubin AST ALT Alkaline Phosphatase Troponin I High Sens 19.5 H* Total Protein Albumin Globulin Albumin/Globulin Ratio Lipase Urine Color Urine Clarity Urine pH Ur Specific [place] Urine Protein Urine Glucose (UA) Urine Ketones Urine Occult Blood Urine Nitrite Urine Bilirubin Urine Urobilinogen Ur Leukocyte Esterase Ur Microscopic Review Urine Culture Comments 04/23/19 10:00 WBC RBC Hgb Hct MCV MCH MCHC RDW Plt Count MPV Neut # (Auto) Lymph # (Auto) [place] # (Auto) Eos # (Auto) Baso # (Auto) Absolute Nucleated RBC Nucleated RBC % PT INR APTT Sodium Potassium Chloride Carbon Dioxide Anion Gap BUN Creatinine Estimated GFR (MDRD) Glucose Glycated Hemoglobin Estim Average Glucose Lactic Acid Calcium Total Bilirubin AST ALT Alkaline Phosphatase Troponin I High Sens Total Protein Albumin Globulin Albumin/Globulin Ratio Lipase Urine Color YELLOW Urine Clarity CLEAR Urine pH 6.0 Ur Specific [place] 1.010 Urine Protein NEGATIVE Urine Glucose (UA) NEGATIVE Urine Ketones 15 H Urine Occult Blood TRACE-INTA Urine Nitrite NEGATIVE Urine Bilirubin NEGATIVE Urine Urobilinogen 0.2 (NORMAL) Ur Leukocyte Esterase NEGATIVE Ur Microscopic Review NOT INDICATED Urine Culture Comments NOT INDICATED - Rads (name of study) cxr Radiology: Prelim report reviewed, EMP read contemporaneously, See rad report (1. Central bronchial wall thickening could reflect underlying reactive airways and bronchitis. 2. Left ear than right basilar opacities could reflect superimposed pneumonia. ) PD MEDICAL DECISION MAKING - ED course Complexity details: reviewed results, re-evaluated patient, considered differential, d/w patient, d/w family, d/w artist consultant ED course: 88-year-old female presents to the emergency department with rigors today. Appears to have bilateral pneumonia. Will start on antibiotics for this. Started on the sepsis pathway. Discussed the case with Dr. Reza, hospital ist accepts. This document was made in part using voice recognition software. While efforts are made to proofread this document, sound alike and grammatical errors may occur. - Sepsis Event Current Stage of Sepsis: Sepsis Possible source of Sepsis: Pulmonary, Skin/soft tissue Mental/Cognitive Status: Alert/Oriented X3 Capillary refill: Less than 2 seconds Peripheral Pulse Strength: 2+ Slightly Diminished Peripheral Pulse Location: Radial Bedside ultrasound performed: No Departure - Departure Disposition: 66 [facility] DC/Xfer Clinical Impression: Hypoxia, Atrial fibrillation with RVR Pneumonia Qualifiers: Pneumonia type: due to unspecified organism Laterality: bilateral Lung location: lower lobe of lung Qualified Code(s): J18.9 - Pneumonia, unspecified organism Sepsis Qualifiers: Sepsis type: sepsis due to unspecified organism Sepsis acute organ dysfunction status: without acute organ dysfunction Qualified Code(s): A41.9 - Sepsis, unspecified organism Condition: Stable Discharge Date/Time: 04/23/19 11:35
[2019-04-23] MEDS ORDERED: PROCHLORPERAZINE 10 MG/2 ML VIAL IVP PRN (10:59)
[2019-04-23] MEDS ORDERED: SODIUM CHLORIDE FLUSH 0.9% 10 ML SYRINGE IVP PRN (10:59)
[2019-04-23] MEDS ORDERED: ACETAMINOPHEN 325 MG TABLET PO PRN (10:59)
[2019-04-23] MEDS ORDERED: LACTATED RINGERS 1,000 ML IV SCH (11:00)
[2019-04-23 11:43] LABS: HB2 TOTAL 14.4 g/dL; HEMOGLOBIN A1C 0.76 g/dL
[2019-04-23] MEDS: INSULIN ASPART 300 UNIT/3 ML PEN SUBQ SCH ×3 (13:50→21:15)
[2019-04-23] MEDS ORDERED: PROCHLORPERAZINE 10 MG/2 ML VIAL IVP ONE (14:08)
[2019-04-23] MEDS ORDERED: diltiaZEM INJ 5 MG/ML VIAL IVP SCH ×2 (14:30→16:00)
--- NOTE | 2019-04-23 14:38 | PHARMACY PROGRESS NOTE ---
- Monitoring Indication for anticoagulation: Atrial Fibrillation Previous home regime: Rivaroxaban 20mg every evening with dinner Potentially interacting medications: Aspirin - which may increase risk of bleed Other anticoagulation: None Risk factors for bleed: Age >65, Diabetes - Recommendations Dosing: Anticoagulation Monitoring 04/23/19 04/23/19 09:30 09:30 Hgb 14.4 Hct 44.5 PT 26.9 H INR 2.5 H Last Dose Given: home medication S&S of bleeding: none noted Pharmacy recommendation: Continue current regime (PT/INR values are an unreliable indicator of anticoagulation level with Rivaroxaban, and will not be routinely monitoredby pharmacy. An Anti-Factor Xa Assay using Rivaroxaban containing plasma calibrators is the most accurate method of determining plasma levels of Rivaroxaban. At the time of this writing, this assay is unavailable at [facility]. However, a standard Anti-Factor Xa Assay, calibrated for UFH or LMWH, may be used to determine the presence, or absence of any anticoagulant effect which may provide a benefit in some situations, such as trauma, urgent surgical or invasive procedures, major bleed, overdose/attempted suicide, renal or liver failure, thrombosis, adherence verification, or concerns regarding drug-drug or drug-disease interactions.)
[2019-04-23] MEDS ORDERED: diltiaZEM INJ 125 MG in DEXTROSE 5% 100 ML IV SCH (16:00)
--- NOTE | 2019-04-23 17:35 | HISTORY & PHYSICAL EXAMINATION ---
DATE OF SERVICE: 04/23/2019 Physician: Iza Reza MD HISTORY OF PRESENT ILLNESS: This is an 88-year-old white female who lives with her daughter. She has a history of diabetes, on oral agents, atrial fibrillation on Xarelto for anticoagulation, prior TIA, leaving her with memory problems, prior retinal detachment, history of carotid vascular disease when she had her TIA with medical management planned. Yesterday patient was in good health. In the evening she was more tired than usual and had some "sniffles and a cough." This morning when the daughter went to see her, mother was having rigors and severe fatigue and had no appetite. She was brought into the emergency room and workup showed that she had desaturation on room air to 89%, elevated lactic acid level of 3.2. She was in atrial fibrillation with rapid ventricular response at rates of 120-130 and chest x-ray showed bilateral pulmonary infiltrates. Patient is being admitted for sepsis with high lactic acid level and tachycardia with pneumonia as the source. Patient complains of having no appetite and intermittent nausea, but no vomiting. She denies any abdominal pain or diarrhea. There has been no chest pain or shortness of breath. She has been compliant with all her medications except unknown if any morning medicines were taken at home before coming to the ER today. Most of the history is obtained from the daughter and son who are at her bedside, but patient is able to answer in short sentences, but then returned back to sleep. She does have fidgety movements of her head and upper body, which gave the impression that she is uncomfortable in some way. PAST MEDICAL HISTORY 1. Chronic atrial fibrillation, on Xarelto. 2. Diabetes, on Metformin only. 3. Peripheral vascular disease (carotids). 4. Hyperlipidemia. 5. TIA with memory problems. 6. Remote history of retinal detachment. ALLERGIES: SULFA. MEDICATIONS 1. Xarelto 20 mg daily. 2. Toprol-XL 25 mg daily. 3. Metformin 1000 mg b.i.d. 4. Vitamin B12 1000 mcg b.i.d. 5. Lipitor 20 mg daily. 6. Baby aspirin daily. FAMILY HISTORY: No inherited diseases. SOCIAL HISTORY: Patient is a nonsmoker, who never smoked, drinks no alcohol. No illicit drug use. She now has a poor memory, but has constant caregiver with the daughter being in the house. Patient normally can dress herself, feed herself, do all ADLs and her only neurologic problem is memory. REVIEW OF SYSTEMS: A comprehensive review of systems as performed by talking to the son and daughter at bedside, the pertinent positives are listed, the rest are negative. PHYSICAL EXAMINATION GENERAL: Elderly white female. She appears in mild distress. VITAL SIGNS: Blood pressure 140/50, heart rate 125 in atrial fibrillation. She has a low-grade fever of 37.7, respiratory rate 22, O2 saturation is 97% on 2 liters nasal cannula oxygen. HEENT: Shows moist oral mucosa, she appears sallow NECK: No JVD at a 30-degree upright angle. CHEST: Diminished breath sounds at both bases, but no rales or rhonchi heard. HEART: Irregular. No audible murmurs. ABDOMEN: Soft, decreased bowel sounds, nontender, mildly distended. No organomegaly. EXTREMITIES: No clubbing, cyanosis, edema. Her feet and toes are cool. NEUROLOGIC: Lethargic, otherwise normal motor exam grossly. LABORATORY DATA: Sodium 136, potassium 3.5, BUN 9, creatinine 0.7, A1c 7. Lactic acid 3.2, bilirubin 1.2, AST is 44 with ALT 25, HS troponin is 19.5 and on repeat 149, which was done approximately 5 hours later. Influenza A and B are negative. Urinalysis is unremarkable. INR is 2.5, but this is not reliable in a patient on Xarelto. White blood count 6.6, hemoglobin 14, platelet count 262. CHEST X-RAY: Bilateral pulmonary infiltrates. EKG: Atrial fibrillation with rapid rate of 134, left IVCD, poor R-wave progression. IMPRESSION AND DIAGNOSES 1. Sepsis by virtue of elevated lactic acid level and tachycardia and the source appears to be pneumonia with hypoxia. 2. Community-acquired pneumonia. 3. Atrial fibrillation with rapid ventricular response. 4. Elevated troponin. 5. Non-insulin dependant Diabetes mellitus. 6. History of transient ischemic attack. 7. History of peripheral vascular disease (carotids). PLAN: Patient was initially admitted to Med/Surg but will be now admitted to the ICU for diltiazem drip for rate control of rapid Afib, since several IV pushes of diltiazem have not controlled the rate, and she is now having elevated troponins presumably related to this tachycardia. Continue with her Xarelto anticoagulation. If her nausea does not allow her to swallow or there is vomiting, then we will change to therapeutic Lovenox dosing at 1 mg/kg subcutaneous b.i.d. Begin IV antibiotics for the pneumonia after blood cultures taken, which was done in the ER and if she produces sputum, then a sputum culture will be taken. We will use Rocephin IV and ceftriaxone IV for empiric coverage. Continue with a carb-controlled diet, starting with clear liquids and advancing as she tolerates. Use antiemetics p.r.n. Follow sugars with Accu- Cheks and sliding scale insulin coverage. Hold metformin for now. Continue with her aspirin and beta franny. Follow her troponin x3 and an EKG in 24 hours. CODE STATUS: FULL CODE. I spoke to the daughter, who is the DPOA, and confirmed that she wants to be resuscitated, but does not want life to be prolonged if it is futile, per Advanced Directives signed in 2013, which we have in the record. DEEP VENOUS THROMBOSIS PROPHYLAXIS: Pharmacotherapy with her Xarelto. ATTESTATION: Patient is expected to be discharged or transferred to another facility within 96 hours: Yes. TD: 04/23/2019 16:36 TANESHA
[2019-04-23] MEDS: RIVAROXABAN 10 MG TABLET PO SCH (18:12)
[2019-04-23] MEDS: SODIUM CHLORIDE FLUSH 0.9% 10 ML SYRINGE IVP SCH ×2 (18:13→22:33)
[2019-04-23] MEDS: NYSTATIN POWDER 15 GM TOP SCH (20:57)
[2019-04-23] MEDS: CYANOCOBALAMIN 500 MCG TABLET PO SCH (20:58)
[2019-04-23] MEDS: D5NS W/20 MEQ KCL 1,000 ML IV SCH (21:00)
[2019-04-23] MEDS ORDERED: guaiFENesin 600 MG TABLET PO SCH (21:00)
[2019-04-23] MEDS ORDERED: ALBUMIN 25% 12.5 GM/50 ML VIAL IV STA (22:15)
[2019-04-23] MEDS ORDERED: SODIUM CHLORIDE 0.9% 1,000 ML IV ONE (22:18)
[2019-04-23] MEDS ORDERED: SODIUM CHLORIDE 0.9% 500 ML IV ONE (22:18)
[2019-04-24] MEDS ORDERED: BENZOCAINE/MENTHOL LOZENGE MM PRN (00:29)
[2019-04-24] MEDS: PHENOL THROAT SPRAY 177 ML MM PRN ×3 (01:05→17:28)
[2019-04-24] MEDS ORDERED: SODIUM CHLORIDE 0.9% 500 ML IV ONE ×2 (01:26→07:39)
[2019-04-24] MEDS ORDERED: SODIUM CHLORIDE 0.9% 1,000 ML IV ONE (01:26)
[2019-04-24] MEDS: D5NS W/20 MEQ KCL 1,000 ML IV SCH ×2 (05:27→17:18)
[2019-04-24] MEDS: PANTOPRAZOLE 40 MG TABLET PO SCH (07:00)
[2019-04-24] MEDS ORDERED: SODIUM CHLORIDE 0.9% 500 ML ONE (07:37)
[2019-04-24 07:47] LABS: BASOPHILS # (AUTO) 0.1 10^3/uL (0.0-0.1); BASOPHILS % (AUTO) 0.4 %; EOSINOPHILS % (AUTO) 0.1 %; HGB - HEMOGLOBIN 10.5 g/dL (12.0-16.0); LYMPHOCYTES # (AUTO) 0.6 10^3/uL (1.5-3.5); LYMPHOCYTES % (AUTO) 5.2 %; MEAN CORPUSCULAR HEMOGLOBIN 29.3 pg (27.0-31.0); MEAN CORPUSCULAR HGB CONC 31.7 g/dL (32.0-36.0); MEAN CORPUSCULAR VOLUME 92.5 fL (81.0-99.0); MONOCYTES # (AUTO) 0.6 10^3/uL (0.0-1.0); MONOCYTES % (AUTO) 5.2 %; NEUTROPHILS # (AUTO) 10.2 10^3/uL (1.5-6.6); NEUTROPHILS % (AUTO) 88.3 %; PLT - PLATELET COUNT 212 10^3/uL (130-450); RED BLOOD COUNT 3.58 10^6/uL (4.20-5.40); RED CELL DISTRIBUTION WIDTH 15.6 % (12.0-15.0); WHITE BLOOD COUNT 11.6 x10^3/uL (4.8-10.8)
[2019-04-24 07:55] LABS: CALCIUM 6.9 mg/dL (8.5-10.3); CREATININE 0.9 mg/dL (0.4-1.0)
[2019-04-24] MEDS: INSULIN ASPART 300 UNIT/3 ML PEN SUBQ SCH ×4 (08:19→21:46)
[2019-04-24] MEDS: ASPIRIN EC 81 MG TABLET PO SCH (08:20)
[2019-04-24] MEDS: CYANOCOBALAMIN 500 MCG TABLET PO SCH ×2 (08:20→21:44)
[2019-04-24] MEDS: SODIUM CHLORIDE FLUSH 0.9% 10 ML SYRINGE IVP SCH ×2 (08:25→17:21)
[2019-04-24] MEDS: NYSTATIN POWDER 15 GM TOP SCH ×2 (08:32→21:55)
[2019-04-24] MEDS ORDERED: cefTRIAXone 1 GM in SODIUM CHLORIDE 0.9% MINIBAG 100 ML IV SCH ×2 (09:00→11:00)
[2019-04-24] MEDS ORDERED: ATORVASTATIN 10 MG TABLET PO SCH (09:00)
[2019-04-24] MEDS ORDERED: METOPROLOL SUCCINATE 25 MG TABLET PO SCH (09:00)
[2019-04-24] MEDS: AZITHROMYCIN INJ 500 MG in SODIUM CHLORIDE 0.9% 250 ML IV SCH (10:11)
--- NOTE | 2019-04-24 11:43 | XRAY Report ---
Reason: Pnumonia, SOB Procedure Date: 04/24/2019 Accession Number: [id number] / [id number] Procedure: XR - Chest 2 View X-Ray CPT Code: 68007 Final Report FULL RESULT: EXAM: CHEST RADIOGRAPHY EXAM DATE: 04/24/2019 09:09 AM. CLINICAL HISTORY: Pneumonia, SOB. COMPARISON: CHEST 1 VIEW 04/23/2019 9:30 AM. TECHNIQUE: 2 views. FINDINGS: Lungs/Pleura: Increased interstitial markings bilaterally. Linear atelectasis or scarring left mid lung, left lung base right lung base. Calcified granuloma Mediastinum: Mild cardiomegaly ectatic aorta Other: Postop lumbar fusion. Old right humeral fracture IMPRESSION: Chronic increased interstitial markings. Areas of atelectasis bilaterally lung bases, left midlung. RADIA
--- NOTE | 2019-04-24 16:19 | PROVIDER PROGRESS NOTE ---
Assessment/Plan - Problem List (1) Atrial fibrillation with RVR Assessment/Plan: She required a diltiazem drip at maximum dose and it was weaned to off early this morning and heart rate is in the 70s. We will increase her once a day beta-franny dose in order to suppress any further elevations of heart rate. She remains on Xarelto for stroke prophylaxis. Transfer out of ICU, on tlemetry. Assess HR with ambulation; start PT. (2) CAP (community acquired pneumonia) Assessment/Plan: She is on empiric Zithromax and ceftriaxone. She has a minimal cough, no sputum production, no sputum was sent for culture. Blood cultures remain negative. Empiric antibiotics for a total 7-day course is planned. Add Florastor (3) Elevated troponin Assessment/Plan: Troponins were 19>> 149>> 196 Today's EKG does not show new changes to confirm an [place] and the Echo was done yesterday and showed no wall motion abnormalities. LVEF is 70%. She had hs-troponin elevation related to tachycardic HR, therefore. (4) DM type 2 (diabetes mellitus, type 2) Assessment/Plan: Her A1c was 7.0 on admission, only using metformin, this indicates good control in an 88-year-old Metformin is on hold while she is here in case she needs IV contrast dye and in case she has elevated creatinine. Continue with carb controlled diet, Accu-Cheks and sliding scale insulin coverage (5) Chronic a-fib Assessment/Plan: Rate control and anticoagulation as above in #1 (6) Carotid stenosis, right Assessment/Plan: She had a TIA several years ago and peripheral vascular disease was found. For this reason she is on daily aspirin (even with her Xarelto). Continue with this management (7) Dementia Qualifiers: Dementia behavioral disturbance: without behavioral disturbance Assessment/Plan: She appears only oriented to herself. She is pleasant and follows cues. We will start PT. (8) Candidiasis of breast Assessment/Plan: Found on nursing skin survey. Nystatin top ordered. (9) Sepsis Qualifiers: Sepsis type: sepsis due to unspecified organism Sepsis acute organ dysfunct ion status: without acute organ dysfunction Qualified Code(s): A41.9 - Sepsis, unspecified organism Assessment/Plan: Resolved - Current Meds Current Meds: Current Medications Generic Name Dose Route Start Last Admin Trade Name Freq PRN Reason Stop Dose Admin Aspirin 81 mg 04/24/19 09:00 04/24/19 08:20 Ecotrin PO 81 mg DAILY CHERYL Administration Cyanocobalamin 1,000 mcg 04/23/19 21:00 04/24/19 08:20 Vitamin B-12 PO 1,000 mcg BID CHERYL Administration Azithromycin 500 mg/ Sodium 250 mls @ 250 mls/hr 04/24/19 09:00 04/24/19 11:15 Chloride IV 04/25/19 09:59 Infused DAILY CHERYL Infusion Potassium Chloride/Dextrose/Sod Cl 1,000 mls @ 125 mls/hr 04/23/19 20:00 04/24/19 11:10 IV 125 mls/hr .Q8H CHERYL Infusion Insulin Aspart 1 - 5 unit 04/23/19 12:00 04/24/19 11:51 Novolog SUBQ Not Given 0800,1200,1700,2100 [facility] Protocol Nystatin 1 applic 04/23/19 21:00 04/24/19 08:32 Nystop TOP 1 applic BID CHERYL Administration Pantoprazole Sodium 40 mg 04/24/19 07:00 04/24/19 07:00 Protonix PO 40 mg QDAC CHERYL Administration Phenol/Menthol 2 sprays 04/24/19 00:29 04/24/19 04:06 Chloraseptic MM 2 sprays Q2HR PRN Administration Throat Pain Rivaroxaban 20 mg 04/23/19 17:00 04/23/19 18:12 Xarelto PO Not Given 1700 CHERYL Sodium Chloride 10 ml 04/23/19 17:00 04/24/19 08:25 Normal Saline Flush 0.9% IVP 10 ml 0100,0900,1700 CHERYL Administration Throat Lozenges 1 lozenge 04/24/19 00:29 04/24/19 07:00 Cepacol MM 1 lozenge Q2HR PRN Administration Throat pain - Lab Result Fish Bone Diagrams: 04/24/19 07:39 04/24/19 07:39 - Additional Planning My Orders: My Active Orders 04/23/19 16:05 Echo Transthoracic Complete [ECHO] Stat 04/23/19 17:00 Rivaroxaban [Xarelto] 20 mg PO 1700 Sodium Chloride Flush 0.9% [Normal Saline Flush 0.9%] 10 ml IVP 0100,0900,1700 04/23/19 20:00 D5ns W/20 Meq KCl 1,000 ml IV 125 mls/hr 04/23/19 21:00 Cyanocobalamin [Vitamin B-12] 1,000 mcg PO BID Nystatin [Nystop] 1 applic TOP BID 04/24/19 Evaluate and Treat PT [PT] Routine 04/24/19 00:29 Benzocaine/Menthol [Cepacol] 1 lozenge MM Q2HR PRN Phenol [Chloraseptic] 2 sprays MM Q2HR PRN 04/24/19 07:00 Pantoprazole [Protonix] 40 mg PO QDAC 04/24/19 09:00 Aspirin EC [Ecotrin] 81 mg PO DAILY Azithromycin Inj [Zithromax Inj] 500 mg Sodium Chloride 0.9% [Normal Saline 0.9%] 250 ml IV DAILY 04/24/19 12:36 Telemetry- [RC] Q4HR 04/24/19 21:00 Atorvastatin [Lipitor] 10 mg PO QPM Metoprolol Succinate [Toprol Xl] 25 mg PO BID 04/24/19 Lunch DIET [Soft Mechanical Diet] [DIET] 04/25/19 09:00 cefTRIAXone [Rocephin] 2 gm Sodium Chloride 0.9% Minibag [Normal Saline 0.9% Minibag] 100 ml IV DAILY Subjective - Subjective Patient Reports: Feeling Better, No Complaints, Other (Giggles when she doesn't know an answer, which I witnessed and the son in the room pointed it out) Nursing Reports: Other (Conversing, has no c/o, had a good apetite, was able to walk >20 ft with PT today) Objective Vital Signs: Vital Signs - 24 hr 04/23/19 04/23/19 04/23/19 16:29 17:00 17:15 Temperature 37.9 C H Heart Rate Heart Rate [ Activity] Heart Rate [ 108 H 101 H 100 Monitoring electrodes] Respiratory 32 H 40 H 38 H Rate Blood Pressure 122/66 97/79 115/73 [Left Brachial artery] Blood Pressure [Left Radial artery] Blood Pressure [Right Brachial artery] O2 Saturation 95 95 96 O2 Saturation [ With Activity] 04/23/19 04/23/19 04/23/19 17:30 17:33 18:00 Temperature Heart Rate Heart Rate [ Activity] Heart Rate [ 97 107 H 108 H Monitoring electrodes] Respiratory 32 H 24 37 H Rate Blood Pressure 128/89 H 128/89 H 126/104 H [Left Brachial artery] Blood Pressure [Left Radial artery] Blood Pressure [Right Brachial artery] O2 Saturation 94 95 94 O2 Saturation [ With Activity] 04/23/19 04/23/19 04/23/19 19:00 19:30 20:00 Temperature 36.5 C 37 C Heart Rate 102 H Heart Rate [ Activity] Heart Rate [ 102 H 81 Monitoring electrodes] Respiratory 32 H 28 H 26 H Rate Blood Pressure 123/56 L 95/49 L [Left Brachial artery] Blood Pressure [Left Radial artery] Blood Pressure [Right Brachial artery] O2 Saturation 95 96 97 O2 Saturation [ With Activity] 04/23/19 04/23/19 04/23/19 21:00 22:00 22:19 Temperature 36.5 C Heart Rate Heart Rate [ Activity] Heart Rate [ 84 78 77 Monitoring electrodes] Respiratory 32 H 32 H 33 H Rate Blood Pressure 77/33 L [Left Brachial artery] Blood Pressure 85/61 L 75/34 L [Left Radial artery] Blood Pressure [Right Brachial artery] O2 Saturation 95 97 97 O2 Saturation [ With Activity] 04/23/19 04/23/19 04/24/19 23:00 23:35 00:32 Temperature 36.5 C Heart Rate Heart Rate [ Activity] Heart Rate [ 79 77 77 Monitoring electrodes] Respiratory 28 H 20 18 Rate Blood Pressure 73/36 L 77/33 L 90/44 L [Left Brachial artery] Blood Pressure [Left Radial artery] Blood Pressure [Right Brachial artery] O2 Saturation 99 98 97 O2 Saturation [ With Activity] 04/24/19 04/24/19 04/24/19 01:30 02:00 03:04 Temperature Heart Rate Heart Rate [ Activity] Heart Rate [ 72 76 72 Monitoring electrodes] Respiratory 27 H 28 H 25 H Rate Blood Pressure 85/39 L 83/38 L [Left Brachial artery] Blood Pressure [Left Radial artery] Blood Pressure 86/54 L [Right Brachial artery] O2 Saturation 97 95 100 O2 Saturation [ With Activity] 04/24/19 04/24/19 04/24/19 04:00 05:00 06:00 Temperature 36.5 C 36.6 C 36.7 C Heart Rate Heart Rate [ Activity] Heart Rate [ 85 76 74 Monitoring electrodes] Respiratory 25 H 23 24 Rate Blood Pressure [Left Brachial artery] Blood Pressure [Left Radial artery] Blood Pressure 91/52 L 90/53 L 83/47 L [Right Brachial artery] O2 Saturation 98 97 97 O2 Saturation [ With Activity] 04/24/19 04/24/19 04/24/19 07:00 08:00 09:00 Temperature Heart Rate Heart Rate [ Activity] Heart Rate [ 74 76 84 Monitoring electrodes] Respiratory 28 H 23 28 H Rate Blood Pressure [Left Brachial artery] Blood Pressure [Left Radial artery] Blood Pressure 89/73 L 102/54 L 105/47 L [Right Brachial artery] O2 Saturation 100 100 99 O2 Saturation [ With Activity] 04/24/19 04/24/19 04/24/19 10:00 11:00 12:00 Temperature 36.3 C L Heart Rate Heart Rate [ Activity] Heart Rate [ 80 91 89 Monitoring electrodes] Respiratory 27 H 20 18 Rate Blood Pressure [Left Brachial artery] Blood Pressure [Left Radial artery] Blood Pressure 90/58 L 91/68 118/53 L [Right Brachial artery] O2 Saturation 100 100 98 O2 Saturation [ With Activity] 04/24/19 04/24/19 04/24/19 12:14 13:00 15:35 Temperature 37 C Heart Rate Heart Rate [ 78 Activity] Heart Rate [ 83 79 Monitoring electrodes] Respiratory 21 16 Rate Blood Pressure [Left Brachial artery] Blood Pressure [Left Radial artery] Blood Pressure 104/80 123/52 L [Right Brachial artery] O2 Saturation 96 98 O2 Saturation [ 96 With Activity] Oxygen O2 Source [With Activity] Nasal cannula O2 Source Room air I&O (Last 24 Hrs): Intake and Output Totals x24h 04/22/19 04/23/19 04/24/19 23:59 23:59 23:59 Intake Total 6740.999 5271.667 Output Total 300 Balance 6740.999 4971.667 General: Alert, No acute distress HEENT: PERRLA, Mucous membr. moist/pink Neck: Supple, No JVD Neuro: Disoriented, Non Focal Cardiovascular: No murmurs Respiratory: No respiratory distress, Other (Crackles at both bases posteriorly) Abdomen: Soft, Other (Obese) Extremities: No edema - Results Results: Laboratory Results WBC 11.6 x10^3/uL (4.8-10.8) H 04/24/19 07:39 RBC 3.58 10^6/uL (4.20-5.40) L 04/24/19 07:39 Hgb 10.5 g/dL (12.0-16.0) L 04/24/19 07:39 Hct 33.1 % (37.0-47.0) L 04/24/19 07:39 MCV 92.5 fL (81.0-99.0) 04/24/19 07:39 MCH 29.3 pg (27.0-31.0) 04/24/19 07:39 MCHC 31.7 g/dL (32.0-36.0) L 04/24/19 07:39 RDW 15.6 % (12.0-15.0) H 04/24/19 07:39 Plt Count 212 10^3/uL (130-450) 04/24/19 07:39 MPV 11.0 fL (7.9-10.8) H 04/24/19 07:39 Neut # (Auto) 10.2 10^3/uL (1.5-6.6) H 04/24/19 07:39 Lymph # (Auto) 0.6 10^3/uL (1.5-3.5) L 04/24/19 07:39 [place] # (Auto) 0.6 10^3/uL (0.0-1.0) 04/24/19 07:39 Eos # (Auto) 0.0 10^3/uL (0.0-0.7) 04/24/19 07:39 Baso # (Auto) 0.1 10^3/uL (0.0-0.1) 04/24/19 07:39 Absolute Nucleated RBC 0.00 x10^3/uL 04/24/19 07:39 Nucleated RBC % 0.0 /100WBC 04/24/19 07:39 PT 26.9 secs (9.9-12.6) H 04/23/19 09:30 INR 2.5 (0.8-1.2) H 04/23/19 09:30 APTT 33.1 secs (24.9-33.3) 04/23/19 09:30 Sodium 133 mmol/L (135-145) L 04/24/19 07:39 Potassium 4.1 mmol/L (3.5-5.0) 04/24/19 07:39 Chloride 105 mmol/L (101-111) 04/24/19 07:39 Carbon Dioxide 20 mmol/L (21-32) L 04/24/19 07:39 Anion Gap 8.0 (6-13) 04/24/19 07:39 BUN 19 mg/dL (6-20) 04/24/19 07:39 Creatinine 0.9 mg/dL (0.4-1.0) 04/24/19 07:39 Estimated GFR (MDRD) 59 (>89) L 04/24/19 07:39 Glucose 180 mg/dL (70-100) H 04/24/19 07:39 Glycated Hemoglobin 7.0 % (4.6-6.2) H 04/23/19 09:40 Estim Average Glucose 154 (70-100) H 04/23/19 09:40 Lactic Acid 2.2 mmol/L (0.5-2.2) 04/23/19 21:02 Calcium 6.9 mg/dL (8.5-10.3) L 04/24/19 07:39 Total Bilirubin 1.2 mg/dL (0.2-1.0) H 04/23/19 09:30 AST 44 IU/L (10-42) H 04/23/19 09:30 ALT 25 IU/L (10-60) 04/23/19 09:30 Alkaline Phosphatase 59 IU/L (42-121) 04/23/19 09:30 Troponin I High Sens 196.8 ng/L (2.3-14.8) H* 04/23/19 21:02 Total Protein 7.8 g/dL (6.7-8.2) 04/23/19 09:30 Albumin 4.1 g/dL (3.2-5.5) 04/23/19 09:30 Globulin 3.7 g/dL (2.1-4.2) 04/23/19 09:30 Albumin/Globulin Ratio 1.1 (1.0-2.2) 04/23/19 09:30 Lipase 46 U/L (22-51) 04/23/19 09:30 Urine Color YELLOW 04/23/19 10:00 Urine Clarity CLEAR (CLEAR) 04/23/19 10:00 Urine pH 6.0 PH (5.0-7.5) 04/23/19 10:00 Ur Specific [place] 1.010 (1.002-1.030) 04/23/19 10:00 Urine Protein NEGATIVE mg/dL (NEGATIVE) 04/23/19 10:00 Urine Glucose (UA) NEGATIVE mg/dL (NEGATIVE) 04/23/19 10:00 Urine Ketones 15 mg/dL (NEGATIVE) H 04/23/19 10:00 Urine Occult Blood TRACE-INTA (NEGATIVE) 04/23/19 10:00 Urine Nitrite NEGATIVE (NEGATIVE) 04/23/19 10:00 Urine Bilirubin NEGATIVE (NEGATIVE) 04/23/19 10:00 Urine Urobilinogen 0.2 (NORMAL) E.U./dL (NORMAL) 04/23/19 10:00 Ur Leukocyte Esterase NEGATIVE (NEGATIVE) 04/23/19 10:00 Ur Microscopic Review NOT INDICATED 04/23/19 10:00 Urine Culture Comments NOT INDICATED 04/23/19 10:00 Nasal Screen MRSA (PCR) NEGATIVE (NEGATIVE) 04/23/19 15:45 Influenza A (Rapid) Negative (Negative) 04/23/19 12:25 Influenza B (Rapid) Negative (Negative) 04/23/19 12:25 - Procedures Procedures: Procedures RELEASE RIGHT HAND TENDON, OPEN APPROACH (06/03/18) Sepsis Event Note (H) - Evaluation Possible source of Sepsis: positive: Pulmonary, Skin/soft tissue
[2019-04-24] MEDS: RIVAROXABAN 10 MG TABLET PO SCH (17:21)
[2019-04-24] MEDS: METOPROLOL SUCCINATE 25 MG TABLET PO SCH (21:40)
[2019-04-24] MEDS: ATORVASTATIN 10 MG TABLET PO SCH (21:41)
[2019-04-25] MEDS: SODIUM CHLORIDE FLUSH 0.9% 10 ML SYRINGE IVP SCH ×4 (00:06→23:37)
[2019-04-25 05:01] LABS: BASOPHILS % (AUTO) 0.4 %; EOSINOPHILS # (AUTO) 0.3 10^3/uL (0.0-0.7); EOSINOPHILS % (AUTO) 2.8 %; HGB - HEMOGLOBIN 10.6 g/dL (12.0-16.0); LYMPHOCYTES # (AUTO) 1.2 10^3/uL (1.5-3.5); LYMPHOCYTES % (AUTO) 12.2 %; MEAN CORPUSCULAR HEMOGLOBIN 28.3 pg (27.0-31.0); MEAN CORPUSCULAR HGB CONC 31.3 g/dL (32.0-36.0); MEAN CORPUSCULAR VOLUME 90.4 fL (81.0-99.0); MEAN PLATELET VOLUME 11.3 fL (7.9-10.8); MONOCYTES # (AUTO) 0.6 10^3/uL (0.0-1.0); MONOCYTES % (AUTO) 5.7 %; NEUTROPHILS # (AUTO) 7.9 10^3/uL (1.5-6.6); NEUTROPHILS % (AUTO) 78.2 %; PLT - PLATELET COUNT 226 10^3/uL (130-450); RED BLOOD COUNT 3.75 10^6/uL (4.20-5.40); RED CELL DISTRIBUTION WIDTH 15.8 % (12.0-15.0); WHITE BLOOD COUNT 10.1 x10^3/uL (4.8-10.8)
[2019-04-25 05:09] LABS: CALCIUM 7.3 mg/dL (8.5-10.3); CREATININE 0.8 mg/dL (0.4-1.0)
[2019-04-25] MEDS: PANTOPRAZOLE 40 MG TABLET PO SCH (06:32)
[2019-04-25] MEDS: INSULIN ASPART 300 UNIT/3 ML PEN SUBQ SCH ×4 (07:36→20:51)
--- NOTE | 2019-04-25 08:59 | PROVIDER PROGRESS NOTE ---
Assessment/Plan - Problem List (1) Atrial fibrillation with RVR Assessment/Plan: She required a Diltiazem drip at maximum dose at admission, which was weaned to off early yesterday. She was transferred out of the ICU after that. Her home B-franny dose of Metoprolol Tartrate 50 mg once a day was adjusted to Metoprolol Succinate 50 mg b.i.d. starting yesterday, in order to suppress further tachycardia. She was also needing volume replacement: she is 13L in (+) fluid balance since admission. This was discussed with the daughter at bedside Assess HR with ambulation; she started PT yesterday. She should stay on a long acting agent, but the dosage amount needs to be determined by watching HR today. Continue telemetry. She remains on Xarelto for stroke prophylaxis. Will check with PT as to whether she will need a SNF after [facility] Plan probable [facility] tomorrow. (2) CAP (community acquired pneumonia) Assessment/Plan: She is on empiric Zithromax and ceftriaxone. She has a minimal cough, no sputum production, no sputum was sent for culture. Blood cultures remain negative. Empiric antibiotics planned for a total 7-day course is planned. Will change to oral antibx today. Florastor ordered. (3) Elevated troponin Assessment/Plan: Troponins were 19>> 149>> 196>> 300's today The second EKG did not show new changes to confirm an [place] and the Echo was done here showed no wall motion abnormalities. LVEF is 70%. She had hs-troponin elevation related to tachycardic HR, therefore. (4) DM type 2 (diabetes mellitus, type 2) Assessment/Plan: Her A1c was 7.0 on admission, only using metformin, this indicates good control in an 88-year-old Metformin is on hold while she is here in case she needs IV contrast dye and in case she has elevated creatinine. Continue with carb controlled diet, Accu-Cheks and sliding scale insulin coverage while here. Plan to resume her home regimen at [facility] (5) Chronic a-fib Assessment/Plan: Rate control and anticoagulation as above in #1 (6) Carotid stenosis, right Assessment/Plan: She had a TIA several years ago and peripheral vascular disease (of the carotid artery) was found. For this reason she is on daily baby aspirin (even with her Xarelto). Continue with this management Continue her statin as well. (7) Dementia Qualifiers: Dementia behavioral disturbance: without behavioral disturbance Assessment/Plan: She appears only oriented to herself and family members. She is pleasant and follows cues. She is able to participate in PT. Will check with PT as to whether she will need a SNF after [facility]. Plan probable [facility] tomorrow. (8) Candidiasis of breast Assessment/Plan: Found on nursing skin survey. Nystatin topically ordered to treat. (9) Anemia Assessment/Plan: Hgb dropped from 13 to 10. This is likely due to hemodilution, since she is 13L (+) in fluid balance since admission. The iv hydration was stopped at midnight, last night. Will assess Iron stores, B12 and Folate and replace if needed. If Iron low, will check stool guiac. (10) Sepsis Qualifiers: Sepsis type: sepsis due to unspecified organism Sepsis acute organ dysfunction status: without acute organ dysfunction Qualified Code(s): A41.9 - Sepsis, unspecified organism Assessment/Plan: Sepsis resolved, and she is 13L (+) in fluid balance since admission. The iv fluids were stopped at midnight last night. Her mental status went from obtundation to awake and conversing on the 2nd day. - Current Meds Current Meds: Current Medications Generic Name Dose Route Start Last Admin Trade Name Rafael PRN Reason Stop Dose Admin Aspirin 81 mg 04/24/19 09:00 04/24/19 08:20 Ecotrin PO 81 mg DAILY CHERYL Administration Atorvastatin Calcium 10 mg 04/24/19 21:00 04/24/19 21:41 Lipitor PO 10 mg QPM CHERYL Administration Cyanocobalamin 1,000 mcg 04/23/19 21:00 04/24/19 21:44 Vitamin B-12 PO 1,000 mcg BID CHERYL Administration Azithromycin 500 mg/ Sodium 250 mls @ 250 mls/hr 04/24/19 09:00 04/24/19 11:15 Chloride IV 04/25/19 09:59 Infused DAILY CHERYL Infusion Insulin Aspart 1 - 5 unit 04/23/19 12:00 04/25/19 07:36 Novolog SUBQ Not Given 0800,1200,1700,2100 [facility] Protocol Metoprolol Succinate 25 mg 04/24/19 21:00 04/24/19 21:40 Toprol Xl PO 25 mg BID CHERYL Administration Nystatin 1 applic 04/23/19 21:00 04/24/19 21:55 Nystop TOP 1 applic BID CHERYL Administration Pantoprazole Sodium 40 mg 04/24/19 07:00 04/25/19 06:32 Protonix PO 40 mg QDAC CHERYL Administration Phenol/Menthol 2 sprays 04/24/19 00:29 04/24/19 17:28 Chloraseptic MM 2 sprays Q2HR PRN Administration Throat Pain Rivaroxaban 20 mg 04/23/19 17:00 04/24/19 17:21 Xarelto PO 20 mg 1700 CHERYL Administration Sodium Chloride 10 ml 04/23/19 17:00 04/25/19 00:06 Normal Saline Flush 0.9% IVP 10 ml 0100,0900,1700 CHERYL Administration Throat Lozenges 1 lozenge 04/24/19 00:29 04/24/19 07:00 Cepacol MM 1 lozenge Q2HR PRN Administration Throat pain - Lab Result Fish Bone Diagrams: 04/25/19 04:30 04/25/19 04:30 - Additional Planning My Orders: My Active Orders 04/24/19 09:00 Aspirin EC [Ecotrin] 81 mg PO DAILY Azithromycin Inj [Zithromax Inj] 500 mg Sodium Chloride 0.9% [Normal Saline 0.9%] 250 ml IV DAILY 04/24/19 12:36 Telemetry- [RC] Q4HR 04/24/19 21:00 Atorvastatin [Lipitor] 10 mg PO QPM Metoprolol Succinate [Toprol Xl] 25 mg PO BID 04/24/19 Lunch DIET [Soft Mechanical Diet] [DIET] 04/25/19 09:00 cefTRIAXone [Rocephin] 2 gm Sodium Chloride 0.9% Minibag [Normal Saline 0.9% Minibag] 100 ml IV DAILY 04/26/19 05:00 TROPONIN I HIGH SENSITIVITY [IAI] DAILYLAB Subjective - Subjective Patient Reports: Feeling Better, Resting Comfortably, Other (She repeated 3 manny es "Who are you? I can't believe Ihaven't met you before.") Objective Vital Signs: Vital Signs - 24 hr 04/24/19 04/24/19 04/24/19 09:00 10:00 11:00 Temperature Heart Rate [ Activity] Heart Rate [ 84 80 91 Monitoring electrodes] Respiratory 28 H 27 H 20 Rate Blood Pressure [Left Brachial artery] Blood Pressure 105/47 L 90/58 L 91/68 [Right Brachial artery] O2 Saturation 99 100 100 O2 Saturation [ With Activity] 04/24/19 04/24/19 04/24/19 12:00 12:14 13:00 Temperature 36.3 C L Heart Rate [ 78 Activity] Heart Rate [ 89 83 Monitoring electrodes] Respiratory 18 21 Rate Blood Pressure [Left Brachial artery] Blood Pressure 118/53 L 104/80 [Right Brachial artery] O2 Saturation 98 96 O2 Saturation [ 96 With Activity] 04/24/19 04/24/19 04/24/19 15:35 20:47 21:40 Temperature 37 C 36.7 C Heart Rate [ Activity] Heart Rate [ 79 91 77 Monitoring electrodes] Respiratory 16 18 21 Rate Blood Pressure [Left Brachial artery] Blood Pressure 123/52 L 134/64 H 124/57 L [Right Brachial artery] O2 Saturation 98 96 O2 Saturation [ With Activity] 04/25/19 04/25/19 04/25/19 00:06 03:21 07:49 Temperature 37.0 C 37.1 C 37.3 C Heart Rate [ Activity] Heart Rate [ 88 86 114 H Monitoring electrodes] Respiratory 17 19 18 Rate Blood Pressure 112/62 126/79 [Left Brachial artery] Blood Pressure 109/76 [Right Brachial artery] O2 Saturation 96 95 94 O2 Saturation [ With Activity] Oxygen O2 Source [With Activity] Nasal cannula O2 Source Nasal cannula I&O (Last 24 Hrs): Intake and Output Totals x24h 04/23/19 04/24/19 04/25/19 23:59 23:59 23:59 Intake Total 6740.999 7534.583 Output Total 300 Balance 6740.999 7234.583 General: Alert HEENT: PERRLA, Mucous membr. moist/pink Neck: Supple, No JVD Neuro: Alert, Disoriented Cardiovascular: No murmurs, Other (Irreg irreg) Respiratory: No respiratory distress, Breath sounds nml Abdomen: Soft, Other (Obese with pannus) Extremities: No edema - Results Results: Laboratory Results WBC 10.1 x10^3/uL (4.8-10.8) 04/25/19 04:30 RBC 3.75 10^6/uL (4.20-5.40) L 04/25/19 04:30 Hgb 10.6 g/dL (12.0-16.0) L 04/25/19 04:30 Hct 33.9 % (37.0-47.0) L 04/25/19 04:30 MCV 90.4 fL (81.0-99.0) 04/25/19 04:30 MCH 28.3 pg (27.0-31.0) 04/25/19 04:30 MCHC 31.3 g/dL (32.0-36.0) L 04/25/19 04:30 RDW 15.8 % (12.0-15.0) H 04/25/19 04:30 Plt Count 226 10^3/uL (130-450) 04/25/19 04:30 MPV 11.3 fL (7.9-10.8) H 04/25/19 04:30 Neut # (Auto) 7.9 10^3/uL (1.5-6.6) H 04/25/19 04:30 Lymph # (Auto) 1.2 10^3/uL (1.5-3.5) L 04/25/19 04:30 [place] # (Auto) 0.6 10^3/uL (0.0-1.0) 04/25/19 04:30 Eos # (Auto) 0.3 10^3/uL (0.0-0.7) 04/25/19 04:30 Baso # (Auto) 0.0 10^3/uL (0.0-0.1) 04/25/19 04:30 Absolute Nucleated RBC 0.00 x10^3/uL 04/25/19 04:30 Nucleated RBC % 0.0 /100WBC 04/25/19 04:30 PT 26.9 secs (9.9-12.6) H 04/23/19 09:30 INR 2.5 (0.8-1.2) H 04/23/19 09:30 APTT 33.1 secs (24.9-33.3) 04/23/19 09:30 Sodium 134 mmol/L (135-145) L 04/25/19 04:30 Potassium 4.1 mmol/L (3.5-5.0) 04/25/19 04:30 Chloride 105 mmol/L (101-111) 04/25/19 04:30 Carbon Dioxide 20 mmol/L (21-32) L 04/25/19 04:30 Anion Gap 9.0 (6-13) 04/25/19 04:30 BUN 13 mg/dL (6-20) 04/25/19 04:30 Creatinine 0.8 mg/dL (0.4-1.0) 04/25/19 04:30 Estimated GFR (MDRD) 68 (>89) L 04/25/19 04:30 Glucose 122 mg/dL (70-100) H 04/25/19 04:30 Glycated Hemoglobin 7.0 % (4.6-6.2) H 04/23/19 09:40 Estim Average Glucose 154 (70-100) H 04/23/19 09:40 Lactic Acid 2.2 mmol/L (0.5-2.2) 04/23/19 21:02 Calcium 7.3 mg/dL (8.5-10.3) L 04/25/19 04:30 Total Bilirubin 1.2 mg/dL (0.2-1.0) H 04/23/19 09:30 AST 44 IU/L (10-42) H 04/23/19 09:30 ALT 25 IU/L (10-60) 04/23/19 09:30 Alkaline Phosphatase 59 IU/L (42-121) 04/23/19 09:30 Troponin I High Sens 354.3 ng/L (2.3-14.8) H* 04/25/19 04:30 Total Protein 7.8 g/dL (6.7-8.2) 04/23/19 09:30 Albumin 4.1 g/dL (3.2-5.5) 04/23/19 09:30 Globulin 3.7 g/dL (2.1-4.2) 04/23/19 09:30 Albumin/Globulin Ratio 1.1 (1.0-2.2) 04/23/19 09:30 Lipase 46 U/L (22-51) 04/23/19 09:30 Urine Color YELLOW 04/23/19 10:00 Urine Clarity CLEAR (CLEAR) 04/23/19 10:00 Urine pH 6.0 PH (5.0-7.5) 04/23/19 10:00 Ur Specific [place] 1.010 (1.002-1.030) 04/23/19 10:00 Urine Protein NEGATIVE mg/dL (NEGATIVE) 04/23/19 10:00 Urine Glucose (UA) NEGATIVE mg/dL (NEGATIVE) 04/23/19 10:00 Urine Ketones 15 mg/dL (NEGATIVE) H 04/23/19 10:00 Urine Occult Blood TRACE-INTA (NEGATIVE) 04/23/19 10:00 Urine Nitrite NEGATIVE (NEGATIVE) 04/23/19 10:00 Urine Bilirubin NEGATIVE (NEGATIVE) 04/23/19 10:00 Urine Urobilinogen 0.2 (NORMAL) E.U./dL (NORMAL) 04/23/19 10:00 Ur Leukocyte Esterase NEGATIVE (NEGATIVE) 04/23/19 10:00 Ur Microscopic Review NOT INDICATED 04/23/19 10:00 Urine Culture Comments NOT INDICATED 04/23/19 10:00 Nasal Screen MRSA (PCR) NEGATIVE (NEGATIVE) 04/23/19 15:45 Influenza A (Rapid) Negative (Negative) 04/23/19 12:25 Influenza B (Rapid) Negative (Negative) 04/23/19 12:25 - Procedures Procedures: Procedures RELEASE RIGHT HAND TENDON, OPEN APPROACH (06/03/18) Sepsis Event Note (H) - Evaluation Possible source of Sepsis: positive: Pulmonary, Skin/soft tissue
[2019-04-25] MEDS ORDERED: cefTRIAXone 2 GM in SODIUM CHLORIDE 0.9% MINIBAG 100 ML IV SCH ×2 (09:00→09:15)
[2019-04-25] MEDS: ASPIRIN EC 81 MG TABLET PO SCH (09:11)
[2019-04-25] MEDS: METOPROLOL SUCCINATE 25 MG TABLET PO SCH ×2 (09:11→20:50)
[2019-04-25] MEDS: CYANOCOBALAMIN 500 MCG TABLET PO SCH ×2 (09:11→20:49)
[2019-04-25] MEDS: NYSTATIN POWDER 15 GM TOP SCH ×2 (09:15→20:52)
[2019-04-25] MEDS: AZITHROMYCIN INJ 500 MG in SODIUM CHLORIDE 0.9% 250 ML IV SCH (09:49)
[2019-04-25] MEDS: RIVAROXABAN 10 MG TABLET PO SCH (17:58)
[2019-04-25] MEDS: ATORVASTATIN 10 MG TABLET PO SCH (20:52)
[2019-04-26 04:52] LABS: BASOPHILS # (AUTO) 0.1 10^3/uL (0.0-0.1); BASOPHILS % (AUTO) 0.7 %; EOSINOPHILS # (AUTO) 0.3 10^3/uL (0.0-0.7); EOSINOPHILS % (AUTO) 4.3 %; HGB - HEMOGLOBIN 11.3 g/dL (12.0-16.0); LYMPHOCYTES # (AUTO) 1.3 10^3/uL (1.5-3.5); LYMPHOCYTES % (AUTO) 17.9 %; MEAN CORPUSCULAR HGB CONC 32.9 g/dL (32.0-36.0); MEAN PLATELET VOLUME 11.2 fL (7.9-10.8); MONOCYTES # (AUTO) 0.7 10^3/uL (0.0-1.0); NEUTROPHILS # (AUTO) 4.9 10^3/uL (1.5-6.6); NEUTROPHILS % (AUTO) 66.6 %; PLT - PLATELET COUNT 238 10^3/uL (130-450); RED BLOOD COUNT 3.77 10^6/uL (4.20-5.40); RED CELL DISTRIBUTION WIDTH 15.3 % (12.0-15.0); WHITE BLOOD COUNT 7.4 x10^3/uL (4.8-10.8)
[2019-04-26 05:13] LABS: CALCIUM 7.9 mg/dL (8.5-10.3); CREATININE 0.7 mg/dL (0.4-1.0)
[2019-04-26 05:31] LABS: FOLATE 10.59 ng/mL (5.90 - >24.8)
[2019-04-26] MEDS: PANTOPRAZOLE 40 MG TABLET PO SCH (05:54)
[2019-04-26] MEDS: INSULIN ASPART 300 UNIT/3 ML PEN SUBQ SCH ×2 (08:09→11:53)
[2019-04-26] MEDS: ASPIRIN EC 81 MG TABLET PO SCH (08:39)
[2019-04-26] MEDS: NYSTATIN POWDER 15 GM TOP SCH (08:39)
[2019-04-26] MEDS: CYANOCOBALAMIN 500 MCG TABLET PO SCH (08:40)
[2019-04-26] MEDS: SODIUM CHLORIDE FLUSH 0.9% 10 ML SYRINGE IVP SCH (08:41)
[2019-04-26] MEDS: METOPROLOL SUCCINATE 25 MG TABLET PO SCH (08:42)
[2019-04-26] MEDS ORDERED: AMOX/CLAV 875 MG/125 MG TABLET PO SCH (09:00)
[2019-04-26 13:36] VITALS: BP 155/81
--- NOTE | 2019-04-26 14:41 | Discharge Plan ---
Discharge Plan Problem Reviewed?: Yes Disposition: Home, Self Care Condition: Stable Prescriptions: Amox/Clav 875/125 [Augmentin 875/125] 1 tab PO BID #8 tablet Metoprolol Tartrate 25 mg PO BID #60 tablet Diet: Regular Activity Restrictions: Activity as Tolerated Shower Restrictions: No Driving Restrictions: Yes (no driving) Assistance Devices: Walker Instruction Topics: Metoprolol tablets, Amoxicillin Clavulanic Acid tablets, Pneumonia, Atrial Fibrillation Dc Health Concerns: You came to our emergency room because you develop shaking chills, weakness, nausea with new nasal congestion and a slight cough. Your chest x-ray showed pneumonia. You also had atrial fibrillation with a rapid heart rate causing your heart to be under a little bit of strain. Plan of Treatment: 1. You completed IV antibiotics in need to have 4 more days of oral antibiotics with Augmentin. 2. Take an ceda-kxp-mrxnwva probiotic once a day to help with antibiotic associated diarrhea 3. We have change your metoprolol to twice a day to help control your heart rate which was too fast while you were here. Care Goals: 1. See your primary care provider, Patrizia Anderson, in the next 1 to 2 weeks. 2. Please have your chest x-ray repeated in about a month to make sure the pneumonia has resolved. 3. However listen to your heart to make sure the atrial fibrillation has stayed controlled. 4. Please take this to your primary care provider so that they can read your instructions. Assessment: Daughter and [id number]-noo were present for discharge instructions. There will be follow through. No Smoking: If you smoke, Please STOP! Call for help.
--- NOTE | 2019-04-26 14:48 | ADVANCE CARE PLANNING NOTE ---
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 Being in the hospital, sleep deprived, and "people poking and prodding" has made mom a little disoriented now. - Encounter Subjective/Patient's Story: She lives with her daughter. Daughter is DURABLE POWER OF PER DIEM CLERK. She has chronic medical problems of diabetes, chronic A. fib, history of a TIA with carotid disease. She has some mild memory issues, walks at home and is independent. No longer able to drive a car because daughter does not feel it safe. She does have a DO NOT RESUSCITATE and a POLST form. I am sitting down with daughter and [id number] to ask if there is been any further advance care planning conversations. The patient herself states that if she were ever to become bedbound, no longer able to recognize her children or know where she was, she does not want to be kept alive. She would like us to "let her go". Daughter and DURABLE POWER OF PER DIEM CLERK is angry and upset. She feels that this conversation is inappropriate. She does not want to discuss this right now because she is tired and angry. [id number]-ic-lgz does state that the children are close. They talk to each other and to their mother all the time. That if their mom clearly states that she wants no aggressive treatment and to transition to comfort measures when the time came, they would honor their mother's wishes. Objective/Medical Story: She is a [place] elderly woman from [place] who is on oral agents for diabetes, Xarelto and metoprolol for chronic atrial fibrillationn prior TIA history, cognitive deficit of aging, retinal detachment, and carotid vascular disease who presents with being more tired than usual and having some "sniffles and a cough". When she was seen by her daughter on the morning of admission she was having Reiger's, severe fatigue, no appetite. In the emergency room she had O2 sat of 89%, lactic acid of 3.2, A. fib with RVR, and a chest x-ray showing bilateral pulmonary infiltrates. She is admitted as sepsis with a high lactic acid and tachycardia and pneumonia as a source. The patient can normally dress herself, feed herself, do all of her ADLs with her only neurologic problem being that of memory loss. With antibiotics and IV fluids, the patient is now afebrile. She was on a diltiazem drip to control her A. fib with RVR and she is now in the 70s with only metoprolol. She does not require oxygen. She still shocked at how weak and tired she is but feeling better. Goals of Care: Unfortunately her DURABLE POWER OF PER DIEM CLERK is upset at my questions and her mother's answers. Mom clearly stated that she wanted to stay at home, under the care of her children, with in-home support hired if they needed to. She also stated that if it got to the point that she was bedbound, no longer really knowing who people were, she would want us to let her go. Her daughter is upset at this. Plan: 1. Patient is ready for discharge today. 2. I have asked the [id number]-iy-[id number] to continue the conversations with the children. They apparently are a very supportive loving family and [id number]-[id number] states that mom in law's wishes will be honored. 3. Medical DURABLE POWER OF PER DIEM CLERK already filled out for DO NOT RESUSCITATE status. I have asked her daughter to consider having a POLST form filled out with her primary care provider Sabiha Anderson Code Status: Do Not Attempt Resuscitation Time spent on advance care plannin
--- NOTE | 2019-05-02 14:57 | DISCHARGE SUMMARY ---
Physician: Paula Whitten MD DATE OF ADMISSION: 04/23/2019 DATE OF DISCHARGE: 04/26/2019 DISCHARGE DIAGNOSES: 1. Sepsis. 2. Community-acquired pneumonia. 3. Atrial fibrillation with rapid ventricular response. 4. Elevated troponin. 5. Non-insulin dependent type 2 diabetes mellitus. 6. Chronic atrial fibrillation. 7. History of coronary artery disease. 8. Dementia. 8. Candidiasis of breast. 9. Chronic anemia. DISCHARGE MEDICATIONS: 1. Aspirin 81 mg daily. 2. Atorvastatin 10 mg daily. 3. Vitamin B12 1000 mcg daily. 4. Metformin 1000 mg b.i.d. 5. Xarelto 20 mg daily. 6. Augmentin 875/125 mg p.o. b.i.d., 8 more doses. 7. Metoprolol tartrate 25 mg p.o. b.i.d. PRINCIPAL PROCEDURES: 1. Echocardiogram with mild concentric left ventricular hypertrophy. Systolic function is hyperdyna maverick with an ejection fraction of greater than 75%, severe biatrial enlargement, mildly abnormal right heart pressures, RVSP at rest is 40 mmHg. This is in comparison to June 2014 echocardiograms wh ere left ventricular systolic function was normal, ejection fraction 55-60%, mild biatrial enlargemen t, ekbi-oe-eureemvv mitral calcification, dgxj-jo-yinotvxm tricuspid regurgitation, and RVSP was 30 m mHg. 2. Blood cultures negative after 48 hours. 3. Troponin peaked at 354.3. HOSPITAL COURSE: The patient is a very pleasant 88-year-old female who lives with her daughter. She has a history of diabetes on oral agents, chronic atrial fibrillation on Xarelto, prior TIA leaving her with memory problems, prior retinal detachment, history of carotid vascular disease found when e had her TIA with medical management recommended. Yesterday, before admission, the patient was in [facility]. Last night, she was more tired than usual and had some "sniffles and a cough." This morni ng when daughter went to see her, mom was having rigors and severe fatigue and had no appetite. She was brought to the emergency room where workup showed her to have a desaturation on room air to 89%, an elevated lactic acid of 3.2. She was in chronic atrial fibrillation, but had rapid ventricular re sponse with rates of 120-130, and a chest x-ray that showed bilateral pulmonary infiltrates. The pat ient met criteria for sepsis and had a high lactic acid with tachycardia and pneumonia as the source. HOSPITAL COURSE: The patient was placed on empiric antibiotic therapy for community-acquired pneumon ia. She responded over the next 24-48 hours. Initially, white cell count peaked at 11.6, but by the time of discharge, she was 7.4. She initially required 2-3 liters of nasal cannula to maintain O2 s aturations and by the time of discharge, respiratory rate was stable, unlabored, and 96% saturation o n room air. Blood cultures were negative. She is to complete more doses of Augmentin in the outpati ent setting, and she has completed her therapy with azithromycin. Atrial fibrillation with rapid ventricular response was noted on admission. She required adjustment of medications for rate control. Troponins did elevate with this and peaked at 354.3. Cardiology/ spitalist felt that the patient had demand ischemia from her atrial fibrillation with RVR and not an [place]. There were no other changes made in her medication. She was noted to have mild anemia to 10.5 grams of hemoglobin. Normocytic. Iron was 57, TIBC 297, p ercent saturation 19%, transferrin 212. B12 was 1788. Folate 10.59. Diabetes mellitus was controlled with insulin. Glucose was 151-169 during her stay. A1c was 7%. No changes were made in her medications at discharge. She is to resume her metformin at discharge. During her stay, dementia was evident with short-term memory, but she is a very pleasant, cooperative , elderly white female. Very proud of her children, fondly reminiscing her life before when she was young and newly . At discharge, she was alert to person and place. PHYSICAL EXAMINATION: VITAL SIGNS: Temperature was 36.8, pulse was 65, blood pressure 155/81, respirations 21 and 96% on r oom air. She is a 5 feet 2 inch female who weighs 100 kg. NECK: Supple, thick. No JVD. LUNGS: Diminished breath sounds at the bases, but there were no crackles, rhonchi or wheezing. HEART: PMI was normally placed and she had an irregularly irregular slow rate and rhythm with a shields tolic murmur. ABDOMEN: Obese, soft, nontender. Candidiasis in the pannus underneath her breasts. EXTREMITIES: Trace edema, but no clubbing or cyanosis. Greater than 30 minutes was spent coordinating discharge. TD: 05/02/2019 13:34
== END 2019-04-26 14:55 | disposition home or self-care (01) | DRG 871 ==
LOC: EDUNIT# → ED 09:18 → MS2 10:53 → ICU 15:42 → MS3 04-24 14:55
PROVIDERS: ADMIT Internal Medicine; ATTEND Specialist
DX: A41.9 Sepsis, unspecified organism (principal); J18.9 Pneumonia, unspecified organism; I48.91 Unspecified atrial fibrillation; G47.30 Sleep apnea, unspecified; E78.00 Pure hypercholesterolemia, unspecified; I20.9 Angina pectoris, unspecified; E87.2 Acidosis; R41.3 Other amnesia; I48.20 Chronic atrial fibrillation, unspecified; E11.9 Type 2 diabetes mellitus without complications; I65.21 Occlusion and stenosis of right carotid artery; F03.90 Unspecified dementia, unspecified severity, without behavioral disturbance, psychotic disturbance, mood disturbance, and anxiety; E11.51 Type 2 diabetes mellitus with diabetic peripheral angiopathy without gangrene; E78.5 Hyperlipidemia, unspecified; B37.2 Candidiasis of skin and nail; D64.9 Anemia, unspecified; I51.7 Cardiomegaly; R79.89 Other specified abnormal findings of blood chemistry; Z66 Do not resuscitate; H91.90 Unspecified hearing loss, unspecified ear; M19.90 Unspecified osteoarthritis, unspecified site; Z79.84 Long term (current) use of oral hypoglycemic drugs; Z79.82 Long term (current) use of aspirin; Z79.01 Long term (current) use of anticoagulants; Z86.69 Personal history of other diseases of the nervous system and sense organs; Z86.73 Personal history of transient ischemic attack (TIA), and cerebral infarction without residual deficits
CPT/HCPCS: 36415; 51702; 71045; 71046; 80048; 80053; 81003; 82607; 82746; 83036; 83540; 83605; 83690; 84466; 84484; 85025; 85610; 85730; 87040; 87150; 87275; 87276; 93005; 93306; 97162; 97530; 99284; 99285; A9270; J7120; 81001; 87086

== ENCOUNTER 2019-04-29 19:58 | Outpatient (CLI) | payer MEDICARE, BC | END 2019-04-29 19:59 | disposition critical access hospital (66) | LOC: EMS 19:58 | PROVIDERS: ATTEND Surgery | DX: R19.5 Other fecal abnormalities (principal); R42 Dizziness and giddiness; R07.89 Other chest pain; R06.02 Shortness of breath; R05 Cough | CPT/HCPCS: A0425; A0427 ==

== ENCOUNTER 2019-04-29 20:14 | Emergency (ER) | payer MEDICARE, BC ==
--- NOTE | 2019-04-29 20:24 | ED Physician Documentation ---
History of Present Illness - Stated complaint Stated Complaint: BACK PAIN/SOA - Chief complaint Chief Complaint: Cardiac - Additonal information Additional information: This is an 88-year-old female with a history of atrial fibrillation on Xarelto, recent pneumonia for which she was hospitalized and discharged on 04/26/2019, who presents with black tarry stools. Her daughter noticed some very dark stool in the toilet, patient states she is having black diarrhea. She has been feeling general weakness, and also some shortness of breath, which they have attributed to her pneumonia. She did have slight central chest discomfort when EMS arrived, but after being giving oxygen this resolved. Patient denies vomiting, denies blood in her stool. She has no history of GI bleeds. History is obtained both from patient's daughter and from the patient. Review of Systems Constitutional: denies: Fever Cardiac: denies: Chest pain / pressure Respiratory: reports: Dyspnea GI: denies: Abdominal Pain, Vomiting Skin: denies: Rash Neurologic: reports: Generalized weakness Endocrine: reports: Easy bruising / bleeding PD PAST MEDICAL HISTORY - Past Medical History Cardiovascular: High cholesterol, Angina Respiratory: Sleep apnea Neuro: TIA Endocrine/Autoimmune: Type 2 diabetes GI: Colon polyps : None HEENT: Chronic hearing loss, Other Psych: None Musculoskeletal: Osteoarthritis, Other Derm: Other - Past Surgical History Past Surgical History: Yes General: Colonoscopy Ortho: Spine surgery HEENT: Detached retina repair - Present Medications Home Medications: Ambulatory Orders Medication Instructions Recorded Confirmed Rivaroxaban [Xarelto] 20 mg PO 1700 05/07/14 04/24/19 Aspirin [Adult Aspirin] 81 mg PO DAILY 05/27/18 04/24/19 Cyanocobalamin (Vitamin B-12) 1,000 mcg PO DAILY 05/27/18 04/24/19 [Vitamin B-12] Atorvastatin Calcium 10 mg PO QPM 04/24/19 04/24/19 Metformin HCl 1,000 mg PO BIDWM 04/24/19 04/24/19 Amox/Clav 875/125 [Augmentin 1 tab PO BID #8 tablet 04/26/19 875/125] Metoprolol Tartrate 25 mg PO BID #60 tablet 04/26/19 - Allergies Allergies/Adverse Reactions: Allergies Allergy/AdvReac Type Severity Reaction Status Date / Time Sulfa (Sulfonamide Allergy Unknown Unknown Verified 04/23/19 09:21 Antibiotics) - Social History Does the pt smoke?: No Smoking Status: Never smoker Does the pt drink ETOH?: No Does the pt have substance abuse?: No - Immunizations Immunizations are current?: Yes Immunizations: TDAP >10years/unknown - POLST Patient has POLST: Yes PD ED PE NORMAL - Vitals Vital signs reviewed: Yes - General General: Alert and oriented X 3, No acute distress - HEENT HEENT: PERRL - Neck Neck: Supple, no meningeal sign - Cardiac Cardiac: No murmur, Other (Irregularly irregular rhythm, normal rate) - Respiratory Respiratory: No respiratory distress, Clear bilaterally - Abdomen Abdomen: Soft, Non tender, Non distended - Rectal Rectal: Other (Chaperoned by RN. There is a small amount of light brown stool in the rectal vault, no shanti red blood or melena. No masses palpated) - Derm Derm: Warm and dry - Extremities Extremities: No deformity - Neuro Neuro: demo event specialist 2-12 intact, No motor deficit, No sensory deficit, Normal speech - Psych Psych: Normal mood, Normal affect Results - Vitals Vitals: Vital Signs - 24 hr 04/29/19 04/29/19 04/29/19 20:15 21:12 21:40 Temperature 36.7 C Heart Rate 85 73 76 Respiratory 20 29 H 20 Rate Blood Pressure 210/85 H 182/88 H 182/88 H O2 Saturation 96 96 96 04/29/19 04/30/19 23:10 01:28 Temperature Heart Rate 75 69 Respiratory 21 20 Rate Blood Pressure 191/102 H 184/89 H O2 Saturation 99 95 Oxygen O2 Source [] Nasal cannula O2 Source Room air Oxygen Flow Rate 2 - EKG (time done) 20:24 Other comments: Other comments (Rate 68, rhythm atrial fibrillation, Incomplete left bundle branch block, QTC normal) - Labs Labs: Microbiology 04/29/19 21:45 Occult Blood - Final Stool Laboratory Tests 04/29/19 04/29/19 04/29/19 20:27 20:27 20:27 WBC 7.5 RBC 4.15 L Hgb 12.1 Hct 37.5 MCV 90.4 MCH 29.2 MCHC 32.3 RDW 15.4 H Plt Count 352 MPV 10.1 Neut # (Auto) 4.1 Lymph # (Auto) 2.1 Morrison # (Auto) 0.8 Eos # (Auto) 0.3 Baso # (Auto) 0.1 Absolute Nucleated RBC 0.00 Nucleated RBC % 0.0 PT 18.3 H INR 1.7 H Sodium 138 Potassium 3.2 L Chloride 96 L Carbon Dioxide 29 Anion Gap 13.0 BUN 6 Creatinine 0.7 Estimated GFR (MDRD) 79 L Glucose 162 H Calcium 9.8 Total Bilirubin 1.0 AST 22 ALT 20 Alkaline Phosphatase 51 Troponin I High Sens B-Natriuretic Peptide Total Protein 7.2 Albumin 3.8 Globulin 3.4 Albumin/Globulin Ratio 1.1 Lipase 40 Urine Color Urine Clarity Urine pH Ur Specific [place] Urine Protein Urine Glucose (UA) Urine Ketones Urine Occult Blood Urine Nitrite Urine Bilirubin Urine Urobilinogen Ur Leukocyte Esterase Ur Microscopic Review Urine Culture Comments 04/29/19 04/29/19 04/29/19 20:27 20:27 21:35 WBC RBC Hgb Hct MCV MCH MCHC RDW Plt Count MPV Neut # (Auto) Lymph # (Auto) Morrison # (Auto) Eos # (Auto) Baso # (Auto) Absolute Nucleated RBC Nucleated RBC % PT INR Sodium Potassium Chloride Carbon Dioxide Anion Gap BUN Creatinine Estimated GFR (MDRD) Glucose Calcium Total Bilirubin AST ALT Alkaline Phosphatase Troponin I High Sens 48.6 H* B-Natriuretic Peptide 436 H Total Protein Albumin Globulin Albumin/Globulin Ratio Lipase Urine Color YELLOW Urine Clarity CLEAR Urine pH 7.0 Ur Specific [place] <=1.005 Urine Protein NEGATIVE Urine Glucose (UA) NEGATIVE Urine Ketones NEGATIVE Urine Occult Blood NEGATIVE Urine Nitrite NEGATIVE Urine Bilirubin NEGATIVE Urine Urobilinogen 0.2 (NORMAL) Ur Leukocyte Esterase NEGATIVE Ur Microscopic Review NOT INDICATED Urine Culture Comments NOT INDICATED 04/29/19 23:25 WBC RBC Hgb Hct MCV MCH MCHC RDW Plt Count MPV Neut # (Auto) Lymph # (Auto) Morrison # (Auto) Eos # (Auto) Baso # (Auto) Absolute Nucleated RBC Nucleated RBC % PT INR Sodium Potassium Chloride Carbon Dioxide Anion Gap BUN Creatinine Estimated GFR (MDRD) Glucose Calcium Total Bilirubin AST ALT Alkaline Phosphatase Troponin I High Sens 51.9 H* B-Natriuretic Peptide Total Protein Albumin Globulin Albumin/Globulin Ratio Lipase Urine Color Urine Clarity Urine pH Ur Specific [place] Urine Protein Urine Glucose (UA) Urine Ketones Urine Occult Blood Urine Nitrite Urine Bilirubin Urine Urobilinogen Ur Leukocyte Esterase Ur Microscopic Review Urine Culture Comments - Rads (name of study) CXR Radiology: Other (Mild bibasilar atelectasis/infiltrate right greater than left) PD MEDICAL DECISION MAKING - ED course Complexity details: considered differential (GI bleed, anemia, ACS, dysrhythmia, pneumonia, electrolyte abnormality) ED course: On arrival patient is nontoxic-appearing. She is symptom-free. Her abdominal exam is benign, and a rectal exam reveals normal light brown stool which is Hemoccult negative. CBC is unremarkable, INR mildly elevated consistent with her anticoagulant use, she has a somewhat elevated BNP at 436, but no past values for comparison in our system. She has a troponin which is somewhat elevated at 48, but is actually much less than values from her previous hospitalization, and a 3-hour delta high-sensitivity troponin is stable at 51. She has no chest pa in, and ACS highly unlikely. I reviewed her echocardiogram for recent hospitalization, it showed a normal ejection fraction, no signs of heart failure. Her chest x-ray today shows atelectasis versus questionably increased infiltrate, but she has no leukocytosis, no fever, no signs of progression of her pneumonia and she is being treated appropriately for this pneumonia. I ambulated patient and she maintained oxygen saturations greater than 95% while on room air, I do not see signs of overt heart failure or hypoxia at this time. UA negative. I discussed with the patient that I did not see signs of a GI bleed, or an obvious acute cause of her fatigue, but I think it is very important she follows closely with her primary care provider, And given her somewhat elevated BNP a repeat echocardiogram would be reasonable. She may still be recovering from her pneumonia and recent hospitalization. I also discussed with patient strict return precautions with any worsening symptoms, Or any new concerning symptoms. Patient agrees with this plan and was discharged home in care of her daughter Departure - Departure Disposition: 01 Home, Self Care Clinical Impression: Fatigue Qualifiers: Fatigue type: unspecified Qualified Code(s): R53.83 - Other fatigue Condition: Good Comments: You were seen today for dark black stool, as well as some fatigue. Your stool does not show signs of bleeding, and your blood counts are stable. Your chest x-ray does show an infiltrate which is may be slightly increased from prior, but I did not see other signs of worsening pneumonia on your labs. Please continue the antibiotics to finish the course. Your BNP, which measures strain on the heart, was a little elevated, it is very important that you follow-up closely with your primary care provider, and you may need a repeat ultrasound of your heart. If you are having increasing shortness of breath, any chest pain, vomiting, or other concerning symptoms, please return to the emergency department. Discharge Date/Time: 04/30/19 02:12
[2019-04-29 20:31] LABS: BASOPHILS # (AUTO) 0.1 10^3/uL (0.0-0.1); BASOPHILS % (AUTO) 0.9 %; EOSINOPHILS # (AUTO) 0.3 10^3/uL (0.0-0.7); EOSINOPHILS % (AUTO) 4.2 %; HGB - HEMOGLOBIN 12.1 g/dL (12.0-16.0); LYMPHOCYTES # (AUTO) 2.1 10^3/uL (1.5-3.5); LYMPHOCYTES % (AUTO) 28.4 %; MEAN CORPUSCULAR HEMOGLOBIN 29.2 pg (27.0-31.0); MEAN CORPUSCULAR HGB CONC 32.3 g/dL (32.0-36.0); MEAN CORPUSCULAR VOLUME 90.4 fL (81.0-99.0); MEAN PLATELET VOLUME 10.1 fL (7.9-10.8); MONOCYTES # (AUTO) 0.8 10^3/uL (0.0-1.0); MONOCYTES % (AUTO) 10.9 %; NEUTROPHILS # (AUTO) 4.1 10^3/uL (1.5-6.6); NEUTROPHILS % (AUTO) 53.9 %; PLT - PLATELET COUNT 352 10^3/uL (130-450); RED BLOOD COUNT 4.15 10^6/uL (4.20-5.40); RED CELL DISTRIBUTION WIDTH 15.4 % (12.0-15.0); WHITE BLOOD COUNT 7.5 x10^3/uL (4.8-10.8)
[2019-04-29 20:38] LABS: INR 1.7 (0.8-1.2); PT - PROTHROMBIN TIME 18.3 secs (9.9-12.6)
[2019-04-29 20:43] LABS: ALBUMIN 3.8 g/dL (3.2-5.5); ALBUMIN/GLOBULIN RATIO 1.1 (1.0-2.2); CALCIUM 9.8 mg/dL (8.5-10.3); CREATININE 0.7 mg/dL (0.4-1.0); TOTAL PROTEIN 7.2 g/dL (6.7-8.2)
--- NOTE | 2019-04-29 21:10 | XRAY Report ---
Reason: Shortness of breath Procedure Date: 04/29/2019 Accession Number: [id number] / [id number] Procedure: XR - Chest 1 View X-Ray CPT Code: 26999 Final Report FULL RESULT: EXAM: CHEST RADIOGRAPHY EXAM DATE: 04/29/2019 08:46 PM. CLINICAL HISTORY: Shortness of breath for 4 days, worse today. COMPARISON: CHEST 2 VIEW 04/24/2019 9:09 AM. TECHNIQUE: 1 view. FINDINGS: Lungs/Pleura: Mild haziness in the bases, otherwise no focal opacities evident. No pleural effusion. No pneumothorax. Mediastinum: Large heart. Other: None. IMPRESSION: Mild bibasilar atelectasis/infiltrate, right greater than left. RADIA
[2019-04-29 21:45] LABS: BILIRUBIN,URINE NEGATIVE (NEGATIVE); CLARITY,URINE CLEAR (CLEAR); GLUCOSE, URINE (UA) NEGATIVE (NEGATIVE); KETONES,URINE (UA) NEGATIVE (NEGATIVE); LEUKOCYTE ESTERASE, URINE NEGATIVE (NEGATIVE); NITRITE,URINE NEGATIVE (NEGATIVE); OCCULT BLOOD,URINE NEGATIVE (NEGATIVE); PROTEIN,URINE NEGATIVE (NEGATIVE); UROBILINOGEN,URINE 0.2 (NORMAL) E.U./dL (NORMAL)
[2019-04-30 01:30] VITALS: BP 184/89
== END 2019-04-30 02:12 | disposition home or self-care (01) ==
LOC: EDUNIT# → EDBD → ED 20:14
DX: R53.83 Other fatigue (principal); J18.9 Pneumonia, unspecified organism; I48.91 Unspecified atrial fibrillation; Z79.01 Long term (current) use of anticoagulants; I44.7 Left bundle-branch block, unspecified; I44.4 Left anterior fascicular block; R74.8 Abnormal levels of other serum enzymes; R79.89 Other specified abnormal findings of blood chemistry; E11.9 Type 2 diabetes mellitus without complications; Z79.84 Long term (current) use of oral hypoglycemic drugs; Z79.82 Long term (current) use of aspirin
CPT/HCPCS: 36415; 71045; 80053; 81001; 81003; 82272; 83690; 83880; 84484; 85025; 85610; 87086; 93005; 99284

== ENCOUNTER 2019-08-08 19:48 | Outpatient (CLI) | payer MEDICARE, BC | END 2019-08-08 19:49 | disposition critical access hospital (66) | LOC: EMS 19:48 | PROVIDERS: ATTEND Surgery | DX: R06.00 Dyspnea, unspecified (principal); R05 Cough; R50.9 Fever, unspecified | CPT/HCPCS: A0425; A0429 ==

== ENCOUNTER 2019-08-08 20:05 | Emergency (ER) | payer MEDICARE, BC ==
--- NOTE | 2019-08-08 20:21 | ED Physician Documentation ---
History of Present Illness - Stated complaint Stated Complaint: FEVER/CHILLS/COUGH - Chief complaint Chief Complaint: Resp - History obtained from History obtained from: Other (The patient is an 88-year-old female who arrives via EMS the patient is able to provide a limited history as she is a poor historian the nurse here in the ED states that EMS reports that the daughter stated that the patient does live at home with her daughter and today they went for a walk and then progressively throughout the afternoon she developed a fever of unknown temperature and cough and shortness of breath so patient arrives via EMS. Patient does admit that she feels like she has a cough and feels like she is breathing fast and reports a subjective fever and chills.) Review of Systems Constitutional: reports: Fever, Chills, Myalgias Eyes: reports: Reviewed and negative Ears: reports: Reviewed and negative Nose: reports: Reviewed and negative Throat: reports: Reviewed and negative Cardiac: reports: Reviewed and negative Respiratory: reports: Dyspnea, Cough GI: reports: Reviewed and negative : reports: Reviewed and negative Skin: reports: Reviewed and negative Musculoskeletal: reports: Reviewed and negative Neurologic: reports: Reviewed and negative Psychiatric: reports: Reviewed and negative Endocrine: reports: Reviewed and negative Immunocompromised: reports: Reviewed and negative PD PAST MEDICAL HISTORY - Past Medical History Cardiovascular: High cholesterol, Angina Respiratory: Sleep apnea Neuro: TIA Endocrine/Autoimmune: Type 2 diabetes GI: Colon polyps : None HEENT: Chronic hearing loss, Other Psych: None Musculoskeletal: Osteoarthritis, Other Derm: Other - Past Surgical History Past Surgical History: Yes General: Colonoscopy Ortho: Spine surgery HEENT: Detached retina repair - Present Medications Home Medications: Ambulatory Orders Medication Instructions Recorded Confirmed Rivaroxaban [Xarelto] 20 mg PO 1700 05/07/14 04/24/19 Aspirin [Adult Aspirin] 81 mg PO DAILY 05/27/18 04/24/19 Cyanocobalamin (Vitamin B-12) 1,000 mcg PO DAILY 05/27/18 04/24/19 [Vitamin B-12] Atorvastatin Calcium 10 mg PO QPM 04/24/19 04/24/19 Metformin HCl 1,000 mg PO BIDWM 04/24/19 04/24/19 Amox/Clav 875/125 [Augmentin 1 tab PO BID #8 tablet 04/26/19 875/125] Metoprolol Tartrate 25 mg PO BID #60 tablet 04/26/19 Cephalexin [Keflex] 500 mg PO BID #14 capsule 08/08/19 - Allergies Allergies/Adverse Reactions: Allergies Allergy/AdvReac Type Severity Reaction Status Date / Time Sulfa (Sulfonamide Allergy Unknown Unknown Verified 08/08/19 20:21 Antibiotics) - Social History Does the pt smoke?: No Smoking Status: Never smoker Does the pt drink ETOH?: No Does the pt have substance abuse?: No - Immunizations Immunizations are current?: Yes Immunizations: TDAP >10years/unknown - POLST Patient has POLST: Yes PD ED PE NORMAL - Vitals Vital signs reviewed: Yes - General General: Alert and oriented X 3, No acute distress, Well developed/nourished - HEENT HEENT: Atraumatic, PERRL, Moist mucous membranes, Pharynx benign - Neck Neck: Supple, no meningeal sign, No JVD - Cardiac Cardiac: No murmur, Strong equal pulses, Other (Tachycardic and irregularly irregular) - Respiratory Respiratory: No respiratory distress, Clear bilaterally - Abdomen Abdomen: Normal bowel sounds, Soft, Non tender, Non distended - Back Back: No CVA TTP, No spinal TTP - Derm Derm: Normal color, Warm and dry, No rash - Extremities Extremities: No deformity, No tenderness to palpate, No edema, No calf tenderness / cord - Neuro Neuro: Alert and oriented X 3, core winding 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, No motor deficit, No sensory deficit, Normal speech - Psych Psych: Normal mood, Normal affect Results - Vitals Vitals: Vital Signs - 24 hr 08/08/19 08/08/19 08/08/19 20:10 21:09 21:19 Temperature 37.1 C 37.5 C Heart Rate 98 104 H Respiratory 33 H 27 H Rate Blood Pressure 185/89 H 165/62 H O2 Saturation 96 94 Oxygen O2 Source [] Nasal cannula O2 Source Room air Oxygen Flow Rate 2 - EKG (time done) 20:38 Rate: Other (No STEMI) - Labs Labs: Laboratory Tests 08/08/19 08/08/19 08/08/19 20:50 20:50 20:50 WBC 11.8 H RBC 4.83 Hgb 13.8 Hct 43.0 MCV 89.0 MCH 28.6 MCHC 32.1 RDW 15.9 H Plt Count 294 MPV 10.7 Neut # (Auto) 9.8 H Lymph # (Auto) 0.9 L [place] # (Auto) 1.0 Eos # (Auto) 0.1 Baso # (Auto) 0.1 Absolute Nucleated RBC 0.00 Nucleated RBC % 0.0 PT 20.2 H INR 1.8 H APTT 31.6 Sodium 133 L Potassium 4.1 Chloride 97 L Carbon Dioxide 22 Anion Gap 14.0 H BUN 14 Creatinine 0.8 Estimated GFR (MDRD) 68 L Glucose 180 H Lactic Acid Calcium 9.4 Magnesium 1.5 L Total Bilirubin 1.3 H AST 22 ALT 18 Alkaline Phosphatase 55 Total Creatine Kinase 37 Troponin I High Sens B-Natriuretic Peptide Total Protein 7.4 Albumin 3.9 Globulin 3.5 Albumin/Globulin Ratio 1.1 Lipase 31 Urine Color Urine Clarity Urine pH Ur Specific [place] Urine Protein Urine Glucose (UA) Urine Ketones Urine Occult Blood Urine Nitrite Urine Bilirubin Urine Urobilinogen Ur Leukocyte Esterase Urine RBC Urine WBC Urine WBC Clumps Ur Squamous Epith Cells Urine Bacteria Ur Microscopic Review Urine Culture Comments Influenza A (Rapid) Influenza B (Rapid) 08/08/19 08/08/19 08/08/19 20:50 20:50 20:50 WBC RBC Hgb Hct MCV MCH MCHC RDW Plt Count MPV Neut # (Auto) Lymph # (Auto) [place] # (Auto) Eos # (Auto) Baso # (Auto) Absolute Nucleated RBC Nucleated RBC % PT INR APTT Sodium Potassium Chloride Carbon Dioxide Anion Gap BUN Creatinine Estimated GFR (MDRD) Glucose Lactic Acid 1.7 Calcium Magnesium Total Bilirubin AST ALT Alkaline Phosphatase Total Creatine Kinase Troponin I High Sens 22.5 H* B-Natriuretic Peptide 131 H Total Protein Albumin Globulin Albumin/Globulin Ratio Lipase Urine Color Urine Clarity Urine pH Ur Specific [place] Urine Protein Urine Glucose (UA) Urine Ketones Urine Occult Blood Urine Nitrite Urine Bilirubin Urine Urobilinogen Ur Leukocyte Esterase Urine RBC Urine WBC Urine WBC Clumps Ur Squamous Epith Cells Urine Bacteria Ur Microscopic Review Urine Culture Comments Influenza A (Rapid) Influenza B (Rapid) 08/08/19 08/08/19 21:05 21:05 WBC RBC Hgb Hct MCV MCH MCHC RDW Plt Count MPV Neut # (Auto) Lymph # (Auto) [place] # (Auto) Eos # (Auto) Baso # (Auto) Absolute Nucleated RBC Nucleated RBC % PT INR APTT Sodium Potassium Chloride Carbon Dioxide Anion Gap BUN Creatinine Estimated GFR (MDRD) Glucose Lactic Acid Calcium Magnesium Total Bilirubin AST ALT Alkaline Phosphatase Total Creatine Kinase Troponin I High Sens B-Natriuretic Peptide Total Protein Albumin Globulin Albumin/Globulin Ratio Lipase Urine Color YELLOW Urine Clarity HAZY Urine pH 6.0 Ur Specific [place] 1.020 Urine Protein 100 H Urine Glucose (UA) NEGATIVE Urine Ketones 15 H Urine Occult Blood SMALL H Urine Nitrite POSITIVE H Urine Bilirubin NEGATIVE Urine Urobilinogen 0.2 (NORMAL) Ur Leukocyte Esterase SMALL H Urine RBC 11-25 H Urine WBC >25 H Urine WBC Clumps PRESENT Ur Squamous Epith Cells FEW Squamous Urine Bacteria Many H Ur Microscopic Review INDICATED Urine Culture Comments INDICATED Influenza A (Rapid) Negative Influenza B (Rapid) Negative PD MEDICAL DECISION MAKING - ED course Complexity details: re-evaluated patient, considered differential (Pneumonia, influenza, atypical pneumonia, ACS, atrial fibrillation with RVR, bronchitis, dehydration, acute kidney injury, lymphopenia, acute renal failur, UTI), d/w patient Departure - Departure Disposition: 01 Home, Self Care Clinical Impression: UTI (urinary tract infection) Qualifiers: Urinary tract infection type: site unspecified Hematuria presence: without hematuria Qualified Code(s): N39.0 - Urinary tract infection, site not specified Condition: Stable Instructions: ED UTI Cystitis Female Follow-Up: Sabiha Anderson PA-C [Primary Care Provider] - Tomorrow Prescriptions: Cephalexin [Keflex] 500 mg PO BID #14 capsule
[2019-08-08] MEDS ORDERED: SODIUM CHLORIDE 0.9% 1,000 ML IV ONE (20:34)
[2019-08-08] MEDS ORDERED: cefTRIAXone 1 GM in SODIUM CHLORIDE 0.9% MINIBAG 100 ML IV STA (20:34)
[2019-08-08] MEDS ORDERED: ACETAMINOPHEN 325 MG TABLET PO STA (20:35)
[2019-08-08 21:05] LABS: BASOPHILS # (AUTO) 0.1 10^3/uL (0.0-0.1); BASOPHILS % (AUTO) 0.4 %; EOSINOPHILS # (AUTO) 0.1 10^3/uL (0.0-0.7); EOSINOPHILS % (AUTO) 0.5 %; HGB - HEMOGLOBIN 13.8 g/dL (12.0-16.0); LYMPHOCYTES # (AUTO) 0.9 10^3/uL (1.5-3.5); LYMPHOCYTES % (AUTO) 7.5 %; MEAN CORPUSCULAR HEMOGLOBIN 28.6 pg (27.0-31.0); MEAN CORPUSCULAR HGB CONC 32.1 g/dL (32.0-36.0); MEAN PLATELET VOLUME 10.7 fL (7.9-10.8); MONOCYTES % (AUTO) 8.1 %; NEUTROPHILS # (AUTO) 9.8 10^3/uL (1.5-6.6); NEUTROPHILS % (AUTO) 82.8 %; PLT - PLATELET COUNT 294 10^3/uL (130-450); RED BLOOD COUNT 4.83 10^6/uL (4.20-5.40); RED CELL DISTRIBUTION WIDTH 15.9 % (12.0-15.0); WHITE BLOOD COUNT 11.8 x10^3/uL (4.8-10.8)
[2019-08-08 21:09] LABS: INR 1.8 (0.8-1.2); PT - PROTHROMBIN TIME 20.2 secs (9.9-12.6)
[2019-08-08 21:13] LABS: ALBUMIN 3.9 g/dL (3.2-5.5); ALBUMIN/GLOBULIN RATIO 1.1 (1.0-2.2); BILIRUBIN,TOTAL 1.3 mg/dL (0.2-1.0); CALCIUM 9.4 mg/dL (8.5-10.3); CREATININE 0.8 mg/dL (0.4-1.0); MAGNESIUM 1.5 mg/dL (1.7-2.8); TOTAL PROTEIN 7.4 g/dL (6.7-8.2)
[2019-08-08 21:16] LABS: PARTIAL THROMBOPLASTIN TIME 31.6 secs (24.9-33.3)
[2019-08-08 21:19] LABS: BILIRUBIN,URINE NEGATIVE (NEGATIVE); GLUCOSE, URINE (UA) NEGATIVE (NEGATIVE); KETONES,URINE (UA) 15 mg/dL (NEGATIVE); LEUKOCYTE ESTERASE, URINE SMALL (NEGATIVE); NITRITE,URINE POSITIVE (NEGATIVE); OCCULT BLOOD,URINE SMALL (NEGATIVE); PROTEIN,URINE 100 mg/dL (NEGATIVE); UROBILINOGEN,URINE 0.2 (NORMAL) E.U./dL (NORMAL)
[2019-08-08 21:24] LABS: CLARITY,URINE HAZY (CLEAR)
[2019-08-08 21:25] LABS: BACTERIA,URINE Many /HPF (None Seen); SQUAMOUS EPITHELIAL CELL,UR FEW Squamous (<= Few); WBC CLUMPS,URINE PRESENT
--- NOTE | 2019-08-08 21:27 | XRAY Report ---
Reason: sob Procedure Date: 08/08/2019 Accession Number: [id number] / [id number] Procedure: XR - Chest 1 View X-Ray CPT Code: 15398 Final Report FULL RESULT: EXAM: CHEST RADIOGRAPHY EXAM DATE: 08/08/2019 09:05 PM. CLINICAL HISTORY: Shortness of breath. COMPARISON: CHEST 1 VIEW 04/29/2019 8:29 PM. TECHNIQUE: 1 view. FINDINGS: Lungs/Pleura: Minimal left lower lung linear opacity is unchanged, suspect scarring or atelectasis. No consolidation, airspace disease, pleural effusion or pneumothorax. Left lateral base calcified pulmonary nodule, unchanged. Mediastinum: Within exam limitations, the cardiomediastinal contour is normal. IMPRESSION: No acute findings are seen. RADIA
[2019-08-08 22:53] VITALS: BP 120/51
== END 2019-08-08 22:30 | disposition home or self-care (01) ==
LOC: ED 20:05
DX: N39.0 Urinary tract infection, site not specified (principal); E11.9 Type 2 diabetes mellitus without complications; Z79.84 Long term (current) use of oral hypoglycemic drugs
CPT/HCPCS: 36415; 71045; 80053; 81001; 82550; 83605; 83690; 83735; 83880; 84484; 85025; 85610; 85730; 87040; 87086; 87181; 87275; 87276; 93005; 96365; 99283; 99284; A9270; 81003

== ENCOUNTER 2020-05-15 07:53 | Outpatient (CLI) | payer MEDICARE, BC | END 2020-05-15 07:54 | disposition critical access hospital (66) | LOC: EMS 07:53 | PROVIDERS: ATTEND Surgery | DX: M54.5 Low back pain (principal) | CPT/HCPCS: A0425; A0429 ==

== ENCOUNTER 2020-05-15 08:11 | Emergency (ER) | payer MEDICARE, BC ==
--- NOTE | 2020-05-15 08:58 | ED Physician Documentation ---
PD HPI Fall - Stated complaint Stated Complaint: GLF - Chief complaint Chief Complaint: Trauma Ch/Bk - History obtained from History obtained from: Patient, Family - History of Present Illness Mechanism of injury: Unknown Where injury occurred: Home Timing - onset: Today Injury(ies) location: Back Quality of pain: Pain Associated symptoms: Amnesia Symptoms improve with: Rest Worsens with: Palpation Contributing factors: Anticoagulated Similar symptoms before: Diagnosis (chest contusion) Recently seen: Not recently seen - Additional information Additional information: 89-year-old female with advanced dementia who is on Xarelto has had a fall sometime in the night and she was found this morning by members of her family in her closet sitting on the ground. She has a bruise to her back. She is complaining of some pain to her back. She does not recall hitting her head she does not recall the incident. Review of Systems Constitutional: denies: Fever Ears: denies: Ear pain Nose: denies: Congestion Throat: denies: Sore throat Cardiac: reports: Chest pain / pressure. denies: Palpitations, Pedal edema, Calf pain Respiratory: denies: Cough GI: denies: Nausea, Vomiting, Diarrhea PD PAST MEDICAL HISTORY - Past Medical History Past Medical History: Yes Cardiovascular: Hypertension, High cholesterol, Angina, Atrial fibrillation Respiratory: Sleep apnea Neuro: Dementia, TIA Endocrine/Autoimmune: Type 2 diabetes GI: Colon polyps LONG TERM ACUTE CARE REGISTERED NURSE: None : None HEENT: Chronic hearing loss, Other Psych: None Musculoskeletal: Osteoarthritis, Other Derm: Other - Past Surgical History Past Surgical History: Yes General: Colonoscopy Ortho: Spine surgery HEENT: Detached retina repair - Present Medications Home Medications: Ambulatory Orders Medication Instructions Recorded Confirmed Rivaroxaban [Xarelto] 20 mg PO 1700 05/07/14 05/15/20 Aspirin [Adult Aspirin] 81 mg PO DAILY 05/27/18 05/15/20 Cyanocobalamin (Vitamin B-12) 1,000 mcg PO DAILY 05/27/18 05/15/20 [Vitamin B-12] Atorvastatin Calcium 10 mg PO QPM 04/24/19 05/15/20 Metformin HCl 1,000 mg PO BIDWM 04/24/19 05/15/20 Metoprolol Tartrate 25 mg PO BID #60 tablet 04/26/19 05/15/20 - Allergies Allergies/Adverse Reactions: Allergies Allergy/AdvReac Type Severity Reaction Status Date / Time Sulfa (Sulfonamide Allergy Unknown Unknown Verified 05/15/20 08:17 Antibiotics) - Social History Does the pt smoke?: No Smoking Status: Never smoker Does the pt drink ETOH?: No Does the pt have substance abuse?: No - Immunizations Immunizations are current?: Yes Immunizations: TDAP >10years/unknown - POLST Patient has POLST: Yes PD ED PE NORMAL - Vitals Vital signs reviewed: Yes (hypertensive ) - General General: No acute distress, Well developed/nourished - HEENT HEENT: Atraumatic, PERRL, EOMI - Neck Neck: Supple, no meningeal sign, No bony TTP - Cardiac Cardiac: RRR, No murmur - Respiratory Respiratory: No respiratory distress, Clear bilaterally, Other (There is point tenderness to the chest wall posteriorly or with an overlying bruise to the distal lateral chest wall.) - Abdomen Abdomen: Soft, Non tender - Back Back: No CVA TTP, No spinal TTP - Derm Derm: Normal color, Warm and dry, No rash - Extremities Extremities: No deformity, No edema - Neuro Neuro: lumber kiln 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, No motor deficit, No sensory deficit, Normal speech Eye Opening: Spontaneous Motor: Obeys Commands Verbal: Confused GCS Score: 14 - Psych Psych: Normal mood, Normal affect Results - Vitals Vitals: Vital Signs - 24 hr 05/15/20 05/15/20 05/15/20 08:17 08:30 09:42 Temperature 35.9 C L 37 C Heart Rate 78 72 68 Respiratory 18 24 18 Rate Blood Pressure 151/81 H 141/70 H 148/66 H O2 Saturation 100 97 100 Oxygen O2 Source [] Nasal cannula O2 Source Room air - Rads (name of study) CT head Radiology: Prelim report reviewed (Impression: No acute intracranial process.), EMP read indepedently, See rad report ribs w chest Radiology: Prelim report reviewed (Impression: No fracture. No acute disease.), EMP read indepedently, See rad report PD MEDICAL DECISION MAKING - ED course Complexity details: reviewed old records, reviewed results, re-evaluated patient, considered differential, d/w patient, d/w family ED course: 89-year-old female with a fall in the home who is on Xarelto has a bruise to her back she has a rib contusion she has no evidence of a fracture on plain films. She is administered some Toradol intravenously. We did scan her head being on Xarelto with an unknown head injury this was also a negative study. I did ask the daughter specifically if there were any other issues currently with her mother and she indicated that there were none. Departure - Departure Disposition: 01 Home, Self Care Clinical Impression: Contusion of chest wall Qualifiers: Encounter type: initial encounter Laterality: left Qualified Code(s): S20.212A - Contusion of left front wall of thorax, initial encounter Condition: Stable Instructions: ED Contusion Vs Minor Fx Rib Follow-Up: Sabiha Anderson PA-C [Primary Care Provider] -
--- NOTE | 2020-05-15 09:09 | CT Report ---
PROCEDURE: HEAD WO INDICATIONS: fall altered TECHNIQUE: Noncontrast 4.5 mm thick angled axial sections acquired from the foramen magnum to the vertex. For r adiation dose reduction, the following was used: automated exposure control, adjustment of mA and/or kV according to patient size. COMPARISON: None. FINDINGS: Image quality: Excellent. CSF spaces: Basal cisterns are patent. No extra-axial fluid collections. Ventricles are normal in size and shape. Brain: No midline shift. No intracranial masses or hemorrhage. [place]-white matter interface is norm al. Diffuse, scattered nonspecific white matter signal changes, statistically represent chronic micr ovascular ischemic disease although differential includes neurodegenerative, infectious/inflammatory, demyelinating etiologies among other possibilities. Skull and face: Calvarium and visualized facial bones are intact, without suspicious lesions. Sinuses: Visualized sinuses and mastoids are clear. IMPRESSION: No acute intracranial process. Reviewed by: Chai Ayon MD on 05/15/2020 9:07 AM PST Approved by: Chai Ayon MD on 05/15/2020 9:07 AM PST Station ID: [id number]
--- NOTE | 2020-05-15 09:30 | XRAY Report ---
PROCEDURE: Ribs w/PA Chest LT INDICATIONS: fall left lower rib bruise posterior TECHNIQUE: 3 views of the left ribs were acquired, along with a single view chest. COMPARISON: None FINDINGS: Surgical changes and devices: None. Bones and chest wall: No fractures or dislocations. No suspicious bony lesions. Overlying soft tis sues appear unremarkable. Lungs and pleura: No pleural effusions or pneumothorax. Lungs appear clear. Possible high density incidental calcified granuloma projects in the left costophrenic angle. Scattered scarring/atelectasi s. Mediastinum: Mediastinal contours appear normal. Heart size is normal. IMPRESSION: No fracture. No acute disease Reviewed by: Chai Ayon MD on 05/15/2020 9:29 AM PST Approved by: Chai Ayon MD on 05/15/2020 9:29 AM PST Station ID: [id number]
[2020-05-15] MEDS ORDERED: KETOROLAC 30 MG/ML VIAL IVP STA (09:52)
[2020-05-15 10:05] VITALS: BP 166/72
== END 2020-05-15 10:11 | disposition home or self-care (01) ==
LOC: EDUNIT# → ED 08:11
DX: S20.212A Contusion of left front wall of thorax, initial encounter (principal); S30.0XXA Contusion of lower back and pelvis, initial encounter; W18.30XA Fall on same level, unspecified, initial encounter; Y92.002 Bathroom of unspecified non-institutional (private) residence as the place of occurrence of the external cause; F03.90 Unspecified dementia, unspecified severity, without behavioral disturbance, psychotic disturbance, mood disturbance, and anxiety; I48.91 Unspecified atrial fibrillation; Z79.01 Long term (current) use of anticoagulants; Z79.82 Long term (current) use of aspirin; I10 Essential (primary) hypertension; E11.9 Type 2 diabetes mellitus without complications; Z79.84 Long term (current) use of oral hypoglycemic drugs
CPT/HCPCS: 70450; 96374; 99284

== ENCOUNTER 2020-06-21 | Outpatient (CLI) | payer MEDICARE, BC | END 2020-06-21 16:51 | disposition EMS.NT | DX: Z03.89 Encounter for observation for other suspected diseases and conditions ruled out (principal) ==

== ENCOUNTER 2021-01-15 09:37 | Outpatient (CLI) | payer MEDICARE, BC ==
[2021-01-15 12:14] LABS: ALBUMIN 4.2 g/dL (3.2-5.5); ALBUMIN/GLOBULIN RATIO 1.2 (1.0-2.2); ALKALINE PHOSPHATASE 52 IU/L (42-121); ALT ALANINE AMINOTRANSFERASE 14 IU/L (10-60); AST ASPARTATE AMINOTRANSFERASE 20 IU/L (10-42); BILIRUBIN,TOTAL 1.2 mg/dL (0.2-1.0); BUN - BLOOD UREA NITROGEN 14 mg/dL (6-20); CALCIUM 9.9 mg/dL (8.5-10.3); CARBON DIOXIDE - CO2 28 mmol/L (21-32); CHLORIDE 102 mmol/L (101-111); CHOL/HDL RATIO 3.2 (<4.4); CHOLESTEROL 115 mg/dL; CREATININE 0.9 mg/dL (0.4-1.0); GFR - MDRD 59 (>89); GLUCOSE 147 mg/dL (70-100); HDL CHOLESTEROL 36 mg/dL; LDL CHOLESTEROL,CALCULATED 58 mg/dL; LDL/HDL RATIO 1.6 (<4.4); POTASSIUM 4.2 mmol/L (3.5-5.0); SODIUM 141 mmol/L (135-145); TOTAL PROTEIN 7.7 g/dL (6.7-8.2); TRIGLYCERIDES 107 mg/dL; VLDL CHOLESTEROL 21 mg/dL
[2021-01-15 12:26] LABS: ESTIMATED AVERAGE GLUCOSE 154 mg/dL (70-100)
== END 2021-01-15 23:59 | disposition home or self-care (01) ==
LOC: LAB.WCP 09:37
PROVIDERS: ATTEND Physician Assistant Medical
DX: E11.9 Type 2 diabetes mellitus without complications (principal)
CPT/HCPCS: 36415; 80053; 80061; 83036; 83721

== ENCOUNTER 2021-02-22 18:24 | Outpatient (CLI) | payer MEDICARE, BC | END 2021-02-22 18:25 | disposition critical access hospital (66) | LOC: EMS 18:24 | DX: Z04.3 Encounter for examination and observation following other accident (principal); S60.511A Abrasion of right hand, initial encounter; W19.XXXA Unspecified fall, initial encounter | CPT/HCPCS: A0425; A0429 ==

== ENCOUNTER 2021-04-03 14:00 | Outpatient (CLI) | payer MEDICARE, BC ==
--- NOTE | 2021-04-03 16:44 | XRAY Report ---
PROCEDURE: Hip w/Pelvis 1V RT INDICATIONS: HX OF RT HIP HEMIARTHROPLASTY TECHNIQUE: AP pelvis with lateral view(s) of the right hip(s). COMPARISON: Pelvic radiograph dated 02/23/2021. FINDINGS: Bones: There is prior right hip hemiarthroplasty with anatomic right hip alignment unchanged from pr ior study. No gross hardware loosening or failure. No fractures or dislocations. Prior left femoral f ixation is seen with intramedullary michael and surgical screw in place. Moderate to severe left hip join t osteoarthritic changes are seen. No evidence of avascular necrosis of femoral head. Pelvic ring ty ears intact. Post fusion changes in visualized lower lumbar spine is also seen. No suspicious bony l esions. Soft tissues: The visualized bowel gas pattern is normal. No suspicious soft tissue calcifications. IMPRESSION: Prior right hip arthroplasty with anatomic right hip alignment. No fracture or dislocatio n. No evidence of hardware complication.. Reviewed by: Lam Cook MD on 04/03/2021 4:42 PM PST Approved by: Lam Cook MD on 04/03/2021 4:42 PM PST Station ID: [id number]
== END 2021-04-03 23:59 | disposition home or self-care (01) ==
LOC: DI.N 14:00
PROVIDERS: ATTEND Orthopaedic Surgery
DX: Z96.641 Presence of right artificial hip joint (principal)

== ENCOUNTER 2021-07-25 09:56 | Outpatient (CLI) | payer MEDICARE, BC ==
[2021-07-25 12:32] LABS: BASOPHILS # (AUTO) 0.1 10^3/uL (0.0-0.1); EOSINOPHILS # (AUTO) 0.2 10^3/uL (0.0-0.7); EOSINOPHILS % (AUTO) 2.7 %; HCT - HEMATOCRIT 39.7 % (37.0-47.0); HGB - HEMOGLOBIN 12.7 g/dL (12.0-16.0); LYMPHOCYTES # (AUTO) 1.8 10^3/uL (1.5-3.5); LYMPHOCYTES % (AUTO) 25.4 %; MEAN CORPUSCULAR HEMOGLOBIN 27.8 pg (27.0-31.0); MEAN CORPUSCULAR VOLUME 86.9 fL (81.0-99.0); MEAN PLATELET VOLUME 11.2 fL (7.9-10.8); MONOCYTES # (AUTO) 0.6 10^3/uL (0.0-1.0); MONOCYTES % (AUTO) 7.9 %; NEUTROPHILS # (AUTO) 4.5 10^3/uL (1.5-6.6); NEUTROPHILS % (AUTO) 62.7 %; PLT - PLATELET COUNT 304 10^3/uL (130-450); RED BLOOD COUNT 4.57 10^6/uL (4.20-5.40); RED CELL DISTRIBUTION WIDTH 16.9 % (12.0-15.0); WHITE BLOOD COUNT 7.1 x10^3/uL (4.8-10.8)
[2021-07-25 12:49] LABS: ALBUMIN 3.9 g/dL (3.2-5.5); ALBUMIN/GLOBULIN RATIO 1.1 (1.0-2.2); ALKALINE PHOSPHATASE 46 IU/L (42-121); ALT ALANINE AMINOTRANSFERASE 15 IU/L (10-60); AST ASPARTATE AMINOTRANSFERASE 22 IU/L (10-42); BILIRUBIN,TOTAL 0.9 mg/dL (0.2-1.0); BUN - BLOOD UREA NITROGEN 11 mg/dL (6-20); CALCIUM 9.6 mg/dL (8.5-10.3); CARBON DIOXIDE - CO2 25 mmol/L (21-32); CHLORIDE 100 mmol/L (101-111); CHOL/HDL RATIO 3.3 (<4.4); CHOLESTEROL 101 mg/dL; CREATININE 0.8 mg/dL (0.4-1.0); GFR - MDRD 68 (>89); GLUCOSE 127 mg/dL (70-100); HDL CHOLESTEROL 31 mg/dL; LDL CHOLESTEROL,CALCULATED 52 mg/dL; LDL/HDL RATIO 1.7 (<4.4); POTASSIUM 4.6 mmol/L (3.5-5.0); SODIUM 135 mmol/L (135-145); TOTAL PROTEIN 7.4 g/dL (6.7-8.2); TRIGLYCERIDES 92 mg/dL; VLDL CHOLESTEROL 18 mg/dL
[2021-07-25 12:58] LABS: THYROID STIMULATING HORMONE 2.42 uIU/mL (0.34-5.60)
[2021-07-25 13:37] LABS: ESTIMATED AVERAGE GLUCOSE 154 mg/dL (70-100)
== END 2021-07-25 09:57 | disposition home or self-care (01) ==
LOC: LAB.N 09:56
PROVIDERS: ATTEND Family Medicine
DX: I48.91 Unspecified atrial fibrillation (principal); E11.9 Type 2 diabetes mellitus without complications; R60.0 Localized edema; E78.5 Hyperlipidemia, unspecified
CPT/HCPCS: 36415; 80053; 80061; 82043; 82570; 83036; 83721; 84443; 85025

== ENCOUNTER 2021-10-02 13:01 | Outpatient (CLI) | payer MEDICARE, BC | END 2021-10-02 13:02 | disposition EMS.NT | LOC: EMS 13:01 | DX: Z03.89 Encounter for observation for other suspected diseases and conditions ruled out (principal) ==

== ENCOUNTER 2021-11-26 19:53 | Outpatient (CLI) | payer MEDICARE, BC | END 2021-11-26 19:54 | disposition critical access hospital (66) | LOC: EMS 19:53 | DX: R11.10 Vomiting, unspecified (principal) | CPT/HCPCS: A0425; A0427 ==

== ENCOUNTER 2022-01-31 22:09 | Emergency (ER) | payer MEDICARE, BC ==
--- NOTE | 2022-01-31 23:28 | CT Report ---
PROCEDURE: ORBITS WO INDICATIONS: L EYE PARTIAL TRANSIENT VISION LOSS TECHNIQUE: Noncontrast 2.0 mm axial images acquired through the orbits. For radiation dose reduction, the follo wing was used: automated exposure control, adjustment of mA and/or kV according to patient size. COMPARISON: CT head 03/04/2021. FINDINGS: Image quality: Excellent. Orbits: Globes are intact bilaterally. There are 2 small foci of calcifications within the right lob e likely representing dystrophic calcifications. No metallic foreign bodies. The optic nerves are no rmal in size. No retrobulbar masses, fluid collections, or fat abnormalities. The extra-ocular musc les are normal and symmetrical in appearance. Lacrimal glands are normal in size. Optic chiasm is n ormal. Intracranial: Visualized portions of the brain demonstrate moderate cerebral volume loss. Bones and sinuses: Visualized calvarium and facial bones appear intact. Visualized sinuses and mast oids are clear. IMPRESSION: 1. No definite acute abnormality identified in the orbits. No intraorbital fluid collections or mass lesions. 2. Small foci of calcifications within the right globe are nonspecific and may reflect dystrophic prateek cifications. Reviewed by: Jae Elmore MD on 01/31/2022 11:26 PM PDT Approved by: Jae Elmore MD on 01/31/2022 11:26 PM PDT Station ID: [id number]
--- NOTE | 2022-01-31 23:52 | ED Physician Documentation ---
PD HPI OPHTHO - Stated complaint Stated Complaint: L EYE VISION LOSS/DIZZY/N - Chief complaint Chief Complaint: Heent - History obtained from History obtained from: Patient - History of Present Illness Timing - onset: Today Timing - duration: Seconds, Minutes - Additional information Additional information: 89-year-old female with history of A. fib on Xarelto and aspirin, history of retinal detachment status postrepair presents by EMS from home for sudden onset left-sided vision loss that occurred just prior to arrival and resolved spontaneously seconds to minutes after onset. History obtained from the daughter, who stated the patient was watching TV and then suddenly complained that she could not see out of her left eye. She got up to use the restroom and by the time she made it to the bathroom her vision had been restored. Given history of retinal detachment in the past daughter called 911. Patient arrived by herself. She states she could not really remember why she was here today, she states that last thing she remembers she was at home and the next thing she knows she is here. She denies complaints at this time, states that her vision is normal for her Review of Systems Unable to obtain: Other (Patient doesn't remember) PD PAST MEDICAL HISTORY - Past Medical History Past Medical History: Yes Cardiovascular: Atrial fibrillation Respiratory: None Neuro: Dementia Endocrine/Autoimmune: None GI: Colon polyps SHELTER MONITOR: None : None HEENT: Chronic hearing loss, Other Psych: None Musculoskeletal: Osteoarthritis, Other Derm: Other Other Past Medical History: Detached Retina - Past Surgical History Past Surgical History: Yes General: Colonoscopy Ortho: Spine surgery HEENT: Detached retina repair - Present Medications Home Medications: Ambulatory Orders Medication Instructions Recorded Confirmed Rivaroxaban [Xarelto] 20 mg PO 1700 05/07/14 01/31/22 Aspirin [Adult Aspirin] 81 mg PO DAILY 05/27/18 01/31/22 Cyanocobalamin (Vitamin B-12) 1,000 mcg PO DAILY 05/27/18 01/31/22 [Vitamin B-12] Atorvastatin Calcium 10 mg PO QPM 04/24/19 01/31/22 Metformin HCl 1,000 mg PO BIDWM 04/24/19 01/31/22 Metoprolol Tartrate 25 mg PO BID #60 tablet 04/26/19 01/31/22 Calcium Carbonate [Tums (Calcium 500 mg PO BID tablet 02/26/21 01/31/22 Carbonate 500mg)] Cholecalciferol [Vitamin D3] 50 mcg PO DAILY tablet 02/26/21 01/31/22 Multivitamin W/Minerals [Theragran 1 tab PO DAILYWM tablet 02/26/21 01/31/22 M] Saccharomyces Boulardii [Florastor] 250 mg PO BIDWM 02/26/21 01/31/22 - Allergies Allergies/Adverse Reactions: Allergies Allergy/AdvReac Type Severity Reaction Status Date / Time Sulfa (Sulfonamide Allergy Unknown Unknown Verified 01/31/22 22:16 Antibiotics) latex Allergy Unknown Verified 01/31/22 22:16 - Social History Does the pt smoke?: No Smoking Status: Never smoker Does the pt drink ETOH?: No Does the pt have substance abuse?: No - Immunizations Immunizations are current?: Yes Immunizations: TDAP >10years/unknown - POLST Patient has POLST: Yes PD ED PE NORMAL - Vitals Vital signs reviewed: Yes - General General: No acute distress, Well developed/nourished, Other (AOx2) - HEENT HEENT: Atraumatic, PERRL, EOMI - Cardiac Cardiac: Strong equal pulses, Other (irregularly irregular) - Respiratory Respiratory: No respiratory distress, Clear bilaterally - Abdomen Abdomen: Soft, Non tender, Non distended - Derm Derm: Normal color, Warm and dry, No rash - Extremities Extremities: No deformity, Normal ROM s pain - Neuro Neuro: hadoop engineer 2-12 intact, Normal speech - Psych Psych: Normal mood, Normal affect Results - Vitals Vitals: Vital Signs - 24 hr 01/31/22 01/31/22 02/01/22 22:16 22:50 00:20 Temperature 36.9 C 36.8 C Heart Rate 80 67 73 Respiratory 16 24 22 Rate Blood Pressure 150/80 H 144/59 H 135/71 H O2 Saturation 96 96 96 Oxygen O2 Source [With Activity] Nasal cannula O2 Source Room air PD MEDICAL DECISION MAKING - ED course ED course: Transient vision loss in left eye. Spontaneously resolved shortly after symptom onset, has been asymptomatic since even before presentation to the emergency department. No visual disturbances per patient on arrival. CT negative for acute findings. While in the emergency department the patient stated that her vision had been at his baseline. Daughter at bedside states that patient seems to have returned to normal. Patient is already on anticoagulation. Daughter and patient informed of CT results, they are requesting to go home at this time and will follow up with the patient's customer counter representative. Report of CT impression given with patient's daughter upon discharge. If anything changes they know to return to the emergency department for repeat evaluation. Departure - Departure Disposition: 01 Home, Self Care Clinical Impression: Transient visual loss of left eye Condition: Stable Instructions: Vision Probs Comments: CT impression is as follows: 1: No definite acute abnormality identified in the orbits. No intraorbital fluid collections or mass lesions. 2: Small foci of calcifications within the right lobe are nonspecific and may reflect dystrophic calcifications Please follow-up with her customer counter representative. Discharge Date/Time: 02/01/22 00:25
[2022-02-01 00:30] VITALS: BP 135/71
== END 2022-02-01 00:25 | disposition home or self-care (01) ==
LOC: EDUNIT# → ED 22:09
DX: H53.122 Transient visual loss, left eye (principal); F03.90 Unspecified dementia, unspecified severity, without behavioral disturbance, psychotic disturbance, mood disturbance, and anxiety; I48.91 Unspecified atrial fibrillation; Z79.01 Long term (current) use of anticoagulants
CPT/HCPCS: 99281; 99284

== ENCOUNTER 2022-06-07 09:45 | Outpatient (CLI) | payer BC, MEDICARE ==
[2022-06-07 12:52] LABS: BASOPHILS # (AUTO) 0.1 10^3/uL (0.0-0.1); BASOPHILS % (AUTO) 1.1 %; EOSINOPHILS # (AUTO) 0.3 10^3/uL (0.0-0.7); EOSINOPHILS % (AUTO) 3.8 %; HGB - HEMOGLOBIN 12.5 g/dL (12.0-16.0); LYMPHOCYTES % (AUTO) 27.7 %; MEAN CORPUSCULAR HEMOGLOBIN 28.7 pg (27.0-31.0); MEAN CORPUSCULAR HGB CONC 31.3 g/dL (32.0-36.0); MEAN PLATELET VOLUME 11.3 fL (7.9-10.8); MONOCYTES # (AUTO) 0.6 10^3/uL (0.0-1.0); MONOCYTES % (AUTO) 9.1 %; NEUTROPHILS # (AUTO) 4.1 10^3/uL (1.5-6.6); NEUTROPHILS % (AUTO) 57.9 %; PLT - PLATELET COUNT 278 10^3/uL (130-450); RED BLOOD COUNT 4.35 10^6/uL (4.20-5.40); RED CELL DISTRIBUTION WIDTH 15.8 % (12.0-15.0); WHITE BLOOD COUNT 7.1 x10^3/uL (4.8-10.8)
[2022-06-07 13:14] LABS: ESTIMATED AVERAGE GLUCOSE 137 mg/dL (70-100); HEMOGLOBIN A1c% 6.4 % (4.27-6.07)
[2022-06-07 13:49] LABS: CHOL/HDL RATIO 3.3 (<4.4); CHOLESTEROL 91 mg/dL; HDL CHOLESTEROL 28 mg/dL; LDL CHOLESTEROL,CALCULATED 49 mg/dL; LDL/HDL RATIO 1.8 (<4.4); TRIGLYCERIDES 69 mg/dL; VLDL CHOLESTEROL 14 mg/dL
== END 2022-06-07 09:46 | disposition home or self-care (01) ==
LOC: LAB.N 09:45
PROVIDERS: ATTEND Physician Assistant Medical
DX: E78.5 Hyperlipidemia, unspecified (principal); E53.8 Deficiency of other specified B group vitamins; E11.9 Type 2 diabetes mellitus without complications
CPT/HCPCS: 36415; 80061; 82607; 83036; 83721; 85025